=== PATIENT | female | born 1975 | race Caucasian/White ===

== ENCOUNTER 2017-08-20 15:47 | Emergency (ER) | payer MEDICAID, SELFPAY ==
[2017-08-20 15:49] VITALS: BP 143/116; PULSE 92; RESP 14; TEMP 36.6; O2SAT 99; BMI 27.3
--- NOTE | 2017-08-20 15:59 | CT_ITS ---
STUDY: CT ABDOMEN AND PELVIS WITHOUT CONTRAST REASON FOR EXAM: Female, 42 years old. Right flank pain for 3 days. History of tubal ligation. RADIATION DOSAGE (If Supplied By Facility): CTDIvol = ( 10.34 ) mGy, DLP = ( 470.9 ) mGycm TECHNIQUE: Transaxial images were obtained from the dome of the diaphragm to the symphysis pubis without oral contrast, and without intravenous contrast. Sagittal and coronal images were reconstructed. Individualized dose optimization techniques were used for this CT. COMPARISON: CT abdomen and pelvis September 21, 2015. FINDINGS: The visualized lung bases are unremarkable. The visualized portions of the heart are within normal limits. Normal liver. The portal vein diameter is grossly 13 mm. Normal gallbladder and extrahepatic biliary system. The diameter of the common bile duct is 4 mm. Normal spleen. There is an inferior parenchymal lobulation at the tail of the pancreas that is thought to be within normal limits. Normal bilateral adrenal glands. Normal right kidney. Normal left kidney. No nephrolithiasis or hydronephrosis. Normal visualized stomach. Normal small intestine. Normal colon. The appendix is visualized and appears normal. Normal abdominal aorta. Normal inferior vena cava. Normal retroperitoneum. Normal urinary bladder. Normal size retroverted uterus. Endometrial thickness is approximately 8 mm. There is a well-defined 3.95 x 2.9 x 4.5 cm left ovarian cyst. The right ovary is unremarkable There is a small umbilical hernia containing fat. There is suggestion of a very small right-sided inguinal hernia containing adipose tissue. Incidental note of an anomalous lumbosacral vertebra with attempted right-sided sacralization and pseudoarticulation to the upper right sacral ala. CT/Abdomen/Pelvis without Cont IMPRESSION: 1. 4.5 cm left ovarian cyst. The right ovary and retroverted uterus are unremarkable. 2. No nephrolithiasis or hydronephrosis. 3. The bowel is unremarkable without sign of obstruction. The appendix is normal. 4. Small, fat-containing umbilical hernia and suggestion of very small, fat-containing right inguinal hernia. 5. 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 Electronically Signed: Josh Alejandra MD at 17:10 EDT , Service support ,
--- NOTE | 2017-08-20 16:03 | ED.DCSUM_ITS ---
- ER Visit Summary Date of Service: 08/20/17 Chief Complaint: Right flank pain History of Present Illness: The patient is a 42 F presenting with right flank pain since Sunday. She denies nausea or vomiting. Denies diarrhea or constipation. She has urinary frequency. She denies dysuria or hematuria. She has not had these symptoms in the past. She denies injury. Denies history of kidney stones. She did not try any medications prior to arrival. Denies other complaints. Physical Examination: Vitals are stable. Patient is afebrile. Alert no acute distress. HEENT exam is unremarkable. Lungs are clear and equal bilaterally. Heart is regular rate and rhythm. Abdomen is soft nontender nondistended. No rebound or guarding. Back: Right CVA tenderness Extremities are unremarkable. Skin is warm and dry. Remainder of exam is unremarkable. Emergency Department Course and Treatment: Patient was given IV Toradol. CBC shows a hemoglobin of 10.8. She has a history of chronic anemia. Chemistries unremarkable. Urinalysis is normal. CT flank shows 4.5 cm left ovarian cyst, normal appendix, small fat-containing umbilical hernia. Patient is resting comfortably in the emergency department. She is given a prescription for Naprosyn. She is advised to follow-up with Dr. Murray her primary care physician. Advised return to ED for worsening complaints. Disposition: Discharge home Impression: Right flank pain This note was generated with [employer] dictation software. It may contain incorrect words, spelling, and punctuation that were not noted in review of the chart prior to signing ED Disposition - Plan for ED Patient: Chief Complaint: Flank Pain Referrals: Care Physician,No Primary [Family Provider] -
[2017-08-20] MEDS: 0.9% Normal Saline 1,000 ML 250 ML IV (16:31)
[2017-08-20] MEDS: Ketorolac 30 MG/ML Syringe IV (16:31)
[2017-08-20 16:36] LABS: Anion Gap 9 (5-15); BUN 9 mg/dL (7-18); BUN/Creat Ratio 11.4 RATIO (10-20); Calcium,Total 8.5 mg/dL (8.5-10.1); Chloride 109 mmol/L (98-107); Creatinine, Serum 0.79 mg/dL (0.55-1.02); EST Glomerular Filtration Rate 84 mL/min (>60); Est Glom Filt Rate - Afr Amer 102 mL/min (>60); Estimated Creatinine Clearance 78.47 ml/min; Glucose 94 mg/dL (74-106); Potassium 4.1 mmol/L (3.5-5.1); Sodium Level 141 mmol/L (136-145)
[2017-08-20 16:51] LABS: Bacteria 0 SEEN /hpf (None Seen)
[2017-08-20 16:52] LABS: Absolute Lymphocyte Count 1.82 X10^3/ul (0.83-4.51); Absolute Neutrophil Count 3.7 X10^3/uL (2.0-7.7); Basophil# 0.05 X10^3/uL; Basophil% 0.8 % (0-1); Eosinophil# 0.29 X10^3/uL; Eosinophils% 4.6 % (0-5); Hemoglobin 10.8 g/dl (12.0-15.0); Lymphocyte # 1.82 X10^3/ul (4.0); Mean Corp Hgb Conc 30.9 g/gl (32-36); Mean Corpuscular Hgb 22.5 pg (27.0-32.0); Mean Corpuscular Volume 72.9 fL (81-99); Mean Platelet Vol. 9.7 fl (6.2-12.0); Monocyte# 0.45 X10^3/uL; Monocyte% 7.2 % (0-10); Neutrophil # 3.67 X10^3/uL (2.7-7.7); Neutrophil % 58.4 % (47-70); POSITIVE COUNT NO; POSITIVE DIFFERENTIAL NO; POSITIVE MORPHOLOGY YES; Platelet Count 421 K/mm3 (150-450); RBC Distribution Width CV 14.7 % (11.6-14.6); White Blood Count 6.3 K/mm3 (4.4-11.0)
[2017-08-20 16:53] LABS: Differential Indicated SCAN CRITERIA MET
[2017-08-20 17:18] LABS: Color, Urine Yellow (Yellow); Glucose, Dipstick Normal (Normal); Ketone-Dipstick Negative (Negative); Leukocyte Esterase-Dipstick Negative /ul (Negative); Nitrite-Dipstick Negative (Negative); Occult Blood-Urine 10 /ul (Negative); Protein-Dipstick Negative (Negative); Specific Gravity, Urine 1.025 (1.002-1.030); Urine Bilirubin Dipstick Negative (Negative); Urine Clarity Clear (Clear); Urine Urobilinogen Normal (Normal)
[2017-08-20 17:23] LABS: Red Blood Cells-Urine 0-5 SEEN /hpf (0-5); Squamous Epithelial Cells - UA 0-5 SEEN /hpf (5-10); White Blood Cells 0-5 SEEN /hpf (0-5)
[2017-08-20 17:24] LABS: Mucous, Urine 2+ /hpf (<or=2+)
--- NOTE | 2017-08-20 17:34 | ED.DEP ---
ED Disposition - Plan for ED Patient: Chief Complaint: Flank Pain Instructions: ED Flank Pain Uncertain Cause Prescriptions: Naproxen [Naprosyn] 500 mg PO BID PRN #20 tablet Referrals: Care Physician,No Primary [Family Provider] - Polo Murray MD [Primary Care Provider] -
[2017-08-20 17:45] LABS: Anisocytosis 1+; Crenated RBC RARE; Hypochromasia 1+; Microcytosis 3+
[2017-08-20 18:09] VITALS: BP 113/83; PULSE 80; RESP 16; O2SAT 100
== END 2017-08-20 18:00 | disposition home or self-care (01) ==
PROVIDERS: Emergency Provider Emergency Medicine; PCP Family Medicine
DX: R10.9 Unspecified abdominal pain (principal); R35.0 Frequency of micturition; N83.202 Unspecified ovarian cyst, left side; K42.9 Umbilical hernia without obstruction or gangrene; D64.9 Anemia, unspecified; Z79.899 Other long term (current) drug therapy
CPT/HCPCS: 74176; 80048; 81001; 85025; 96361; 96374; 99284; J7030; A4216

== ENCOUNTER 2018-06-17 19:38 | Emergency (ER) | payer MEDICAID, SELFPAY ==
[2018-06-17 19:39] VITALS: BP 127/80; PULSE 80; RESP 17; TEMP 36.8; O2SAT 100; BMI 26.4
--- NOTE | 2018-06-17 19:45 | RAD_ITS ---
STUDY: X-RAY - RIGHT KNEE REASON FOR EXAM: Female, 43 years old. Fall. TECHNIQUE: 4 view(s) of the knee. COMPARISON: None. FINDINGS: Normal visualized distal femur. Normal visualized proximal tibia and fibula. Normal proximal tibiofibular articulation. There is no demonstrated fracture. Normal medial femorotibial compartment. Normal lateral femorotibial compartment. Normal patellofemoral articulation. There is no demonstrated joint effusion. The soft tissue structures are unremarkable. RAD/Knee 4 or More Views IMPRESSION: Normal x-ray examination of the knee. Electronically Signed: Bobby Meredith MD at 19:58 EST , Service support ,
--- NOTE | 2018-06-17 21:00 | ED.DCSUM_ITS ---
- ER Visit Summary Date of Service: 06/17/18 Chief Complaint: Right knee injury History of Present Illness: The patient is a 43 F twisting injury right knee last evening at 1030 slipping on black ice. No falls or head injuries. No paresthesias. Able to ambulate however pain worse with weightbearing. No history of gastric ulcers or kidney injury. No medications taken for symptoms. No previous similar injuries in the past. Physical Examination: General: Alert and oriented ?3, no acute distress HEENT: Normocephalic, atraumatic. Moist mucosa membranes Neck: supple, nontender. Cardiovascular: Regular rate and rhythm, no murmurs Respiratory: Normal breath sounds, symmetric, no distress Abdomen: Soft, nontender, nondistended Extremities: Right lower extremity: Negative logroll knee extensor mechanism intact. Negative varus and valgus. Positive Riley's. No deformities. Distal pulses intact. Neuro: no focal neurological deficits. Test Results: Right knee x-ray: No acute process Emergency Department Course and Treatment: X-ray obtained no acute process. Declined crutches. Sudhakar wrap Motrin started. Exam concerns possible meniscus injury. Is given follow-up with orthopedist. Treatment Plan: [] Disposition: Discharge Impression: Internal derangement right knee This note was generated with [employer] dictation software. It may contain incorrect words, spelling, and punctuation that were not noted in review of the chart prior to signing ED Disposition - Plan for ED Patient: Disposition: Home or Assisted Living Diagnosis: Internal derangement of right knee Instructions: ED Meniscal Injury Knee Poss Prescriptions: Ibuprofen 600 mg PO 4X/DAY PRN #20 tablet PRN Reason: Pain Referrals: Polo Murray MD [Primary Care Provider] - Jaime Mckinnon DO [STAFF PHYSICIAN] - 5-7 Days
[2018-06-17] MEDS: Ibuprofen 600 MG Tablet PO (21:20)
[2018-06-17 21:21] VITALS: PULSE 80; RESP 16
== END 2018-06-17 21:22 | disposition home or self-care (01) ==
PROVIDERS: Emergency Provider Emergency Medicine; Family Provider Family Medicine; PCP Family Medicine
DX: M23.91 Unspecified internal derangement of right knee (principal); W00.0XXA Fall on same level due to ice and snow, initial encounter; X50.1XXA Overexertion from prolonged static or awkward postures, initial encounter; Y93.9 Activity, unspecified; Y92.9 Unspecified place or not applicable; Y99.9 Unspecified external cause status
CPT/HCPCS: 73564; 99283

== ENCOUNTER 2020-09-26 11:45 | Observation (INO) | payer MEDICAID, SELFPAY ==
[2020-09-26] VITALS (13 sets, daily range): BP systolic 108–128; BP diastolic 66–81; PULSE 69–97; RESP 16–28; TEMP 35.3–36.9; O2SAT 99–100; BMI 21.8; BMI 21.4
--- NOTE | 2020-09-26 12:08 | EDS_ITS ---
HPI History of Present Illness Chief Complaint: Abn Labs Detail of Chief Complaint: Sent in for a low hemoglobin done in outside lab of reportedly 4.8. Informant: patient and spouse/S.O. Onset/Context/Timing Onset: Weeks Context: Gradual Onset Timing: Continuous Current Severity: Mild Narrative Narrative: 45-year-old female history of iron deficiency anemia on iron. States 2 months ago had a heavier and longer than normal menstrual cycle. Heavier bleeding. Since that time she is had exertional shortness of breath, fatigue and just generalized weakness. She had blood work done at the [facility] yesterday and they called her and said that her hemoglobin was 4.8 and she did need to go to the emergency department. She denies any bloody noses, bruising, melena or hematuria. She is never needed a transfusion in the past. Prior similar symptoms: No Recent Illness/Hospitalization: No PFSH PFSH Home Medications iron aspgl,ps complex-vit C-sa [Niferex-150] 150 mg PO DAILYCM 05/18/16 [History Last Taken Unknown] montelukast 10 mg PO DAILY 05/18/16 [History Last Taken Unknown] albuterol sulfate [Ventolin Hfa (SP)] 1 - 2 puff INHALATION Q4H PRN PRN 08/20/17 [History Last Taken Unknown] Allergy/AdvReac Type Severity Reaction Status Date / Time Penicillins Allergy Rash Verified 09/26/20 11:50 Social History Smoking Status: Never smoker ROS ROS ED ROS Narrative Middle-aged female with recent fatigue and exertional dyspnea. She denies any nausea, vomiting, diarrhea or fever. She denies any dysuria or hematuria. She denies any melena. No abdominal pain. Constitutional Constitutional ED: Denies chills or fever(s) Eyes Eyes: Denies change in vision ENT ENT ED: Denies ear pain or sore throat Cardiovascular Cardiovascular: Denies chest pain Respiratory/Chest Respiratory/Chest: Reports dyspnea and dyspnea on exertion; Denies cough or sputum Gastrointestinal Gastrointestinal: Denies abdominal pain, diarrhea, melena, nausea or vomiting Genitourinary Genitourinary ED: Denies dysuria or hematuria Musculoskeletal Musculoskeletal: Denies arthralgias or myalgias Integumentary Denies abscess or rash Neurologic Neurologic: Denies headache(s) Psychiatric Psychiatric: Denies depression Endocrine Endocrinology: Denies polyuria Allergic/Immunologic Allergic/Immunologic ED: Denies urticaria EXAM Physical Exam Narrative Exam Narrative: Well-appearing middle-aged female no acute distress. Vital signs stable afebrile. She does appear a little pale. HEENT exam otherwise unremarkable. Lungs are clear to auscultation bilaterally. Heart regular rhythm rate about 95 no murmur. Abdomen soft nontender. Otherwise exam unremarkable. No petechiae or purpura. Neurologically she is awake and alert. Const Vital Signs: 09/26/20 11:47 09/26/20 12:27 Temperature 95.5 F L Temperature Source Temporal Pulse Rate 97 Respiratory Rate 16 Respiratory Effort Normal Non-Labored Respiratory Pattern Normal Blood Pressure 113/66 Blood Pressure Mean 81 Pulse Ox 100 Oxygen Delivery Method Room Air Positive well nourished and well developed General Appearance ED: well developed HEENT Reports moist mucous membranes Negative for trauma or tenderness Eyes PERRL and EOMs intact bilaterally Neck no lymphadenopathy and supple Chest Wall inspection of chest normal Resp normal respiratory effort Auscultation: diminished lung sounds Cardio regular rate, regular rhythm and no murmurs GI normal to inspection, nondistended, normoactive bowel sounds, non-tender and non-distended Palpation: soft Back/Spine no CVA tenderness Extremity normal to inspection General Extremety ED: Negative for edema or tenderness General Extremity: Negative for edema Neuro oriented x3 and CN's II-XII intact bilaterally Sensorium / Orientation: alert Motor Exam: strength 5/5 throughout Psych mental status grossly normal Skin no rashes or lesions noted MDM MDM MDM Narrative Medical decision making narrative: Middle-aged female history of iron deficiency anemia. Reportedly has a hemoglobin of 4.8 on outpatient labs. She will be typed and crossed for 4 units. If her hemoglobin is truly that low she will be given 2 units and discussed with the hospitalist. Lab Data Attestation: I reviewed the patient's lab results. Lab results narrative: CBC is consistent with the labs that were drawn at another facility. Her hemoglobin is 4.6. MCV is 59. Consistent with a microcytic anemia. Patient is doing well on repeat exam at 12:58 PM. We are waiting for the type and cross blood should be transfused 2 units. Due to how low her hemoglobin is I will speak the hospitalist about admission depending if they want to give her 2 to 4 units and the length of time that will take. Discussed the plan with the patient and her and they are comfortable with that. Labs: Laboratory Results - last 24 hr 09/26/20 09/26/20 12:44 12:44 WBC 3.9 L RBC 3.51 L Hgb 4.6 L* Hct 20.8 L MCV 59.3 L MCH 13.1 L MCHC 22.1 L RDW Std Deviation 42.0 RDW Coeff of Jaclyn 20.5 H Plt Count 460 H MPV 9.5 Crossmatch See Detail Discharge Plan Triage Chief Complaint: Abn Labs ED Provider: Robert Godinez Dx/Rx/DC Orders Clinical Impression: Microcytic anemia, Blood transfusion during current hospitalisation Prescriptions: No Action montelukast 10 MG tablet 10 mg PO DAILY RF: 0 Ferrex 150 Plus 150 MG capsule 150 mg PO DAILYCM RF: 0 albuterol sulfate [Ventolin HFA] 1 INHALER inhaler 1 - 2 puff inhalation Q4H PRN PRN (Reason: Asthma) RF: 0 Primary Care Provider: Victor Manuel Du NP Referrals: Victor Manuel Du NP, SECURITY INSTALLATION TECHNICIAN-C [Primary Care Provider] -
[2020-09-26 12:52] LABS: Hematocrit 20.8 % (37-47); Mean Corp Hgb Conc 22.1 g/dL (32-36); Mean Corpuscular Hgb 13.1 pg (27.0-32.0); Mean Corpuscular Volume 59.3 fL (81-99); Mean Platelet Vol. 9.5 fl (6.2-12.0); POSITIVE COUNT YES; POSITIVE MORPHOLOGY YES; Platelet Count 460 K/mm3 (150-450); RBC Distribution Width CV 20.5 % (11.6-14.6); Red Blood Count 3.51 M/mm3 (4.2-5.4); White Blood Count 3.9 K/mm3 (4.4-11.0)
[2020-09-26 12:53] LABS: Hemoglobin 4.6 g/dL (12.0-15.0); Scan Indicated on CBC? Y/N YES- FLAGS NOTED
[2020-09-26 13:08] LABS: Differential Comment SCANNED
--- NOTE | 2020-09-26 13:13 | NURSING ---
DR DOM HOLLINGSWORTH
[2020-09-26 13:20] LABS: Anion Gap 8 (5-15); BUN 9 mg/dL (7-18); BUN/Creat Ratio 14.1 RATIO (10-20); Calcium,Total 8.5 mg/dL (8.5-10.1); Chloride 109 mmol/L (98-107); Creatinine, Serum 0.64 mg/dL (0.55-1.02); EST Glomerular Filtration Rate 106 mL/min (>60); Est Glom Filt Rate - Afr Amer 128 mL/min (>60); Estimated Creatinine Clearance 97.78 ml/min; Glucose 93 mg/dL (74-106); Sodium Level 139 mmol/L (136-145)
--- NOTE | 2020-09-26 13:43 | NURSING ---
109 OBS TERELETSKY ANEMIA
--- NOTE | 2020-09-26 15:32 | HP.PCM.HOS_ITS ---
Documented by User: Joel CRUMP 09/26/20 15:45 HPI - General General Date of Admission: 09/26/20 HPI Narrative Patient is a 45-year-old female who presents to the ED at [facility] with a chief complaint of abnormal labs. Yesterday, patient had labs completed at [facility] on request from her primary care provider, she subsequently found that her hemoglobin was 4.8 and was told to go to the emergency department immediately. Of note she is been suffering from exertional shortness of breath when walking uphill. Review of systems is also significant for fatigue and generalized weakness. Patient denies bloody noses, easy bruis ing, melena, hematuria, chest pain, palpitations, fever, chills, N/V/D. Vital signs stable and patient afebrile. Work-up in the ED was significant for a hemoglobin of 4.6, baseline 11.5. White blood cells are 60. BMP unremarkable. [facility] Medical History (Updated 09/26/20 @ 14:06 by Natalia Francisco) Anemia Asthma Migraines Home Medications iron aspgl,ps complex-vit C-sa [Niferex-150] 150 mg PO DAILYCM 05/18/16 [History Last Taken Unknown] montelukast 10 mg PO DAILY 05/18/16 [History Last Taken Unknown] albuterol sulfate [Ventolin Hfa (SP)] 1 - 2 puff INHALATION Q4H PRN PRN 08/20/17 [History Last Taken Unknown] ascorbic acid (vitamin C) 250 mg PO DAILY 09/26/20 [History Last Taken Unknown] cyanocobalamin (vitamin B-12) [Vitamin B-12] 1,000 mcg PO DAILY 09/26/20 [History Last Taken Unknown] Allergy/AdvReac Type Severity Reaction Status Date / Time Penicillins Allergy Rash Verified 09/26/20 11:50 Social History Smoking Status: Never smoker ROS Review of Systems ROS Unobtainable: Denies due to encephalopathy, due to endotracheal tube, due to mental condition, due to mental status or other Constitutional Constitutional: Reports fever(s), malaise and weakness Eyes Eyes: Denies blurry vision, change in eye color, change in vision, discharge from eye(s), double vision, erythema, eye pain, loss of vision or other ENT HEENT: Denies abnormal hearing, dysphagia, ear pain, epistaxis, headache(s), hearing loss, nasal congestion, nasal discharge, post nasal drip, sinus pressure, sore throat or other Cardiovascular Cardiovascular: Reports dyspnea on exertion and edema; Denies chest pain, claudication, lightheadedness, orthopnea, palpitations, paroxysmal nocturnal dyspnea, rapid heart rate, syncope or other Respiratory/Chest Respiratory/Chest: Reports shortness of breath with exertion Gastrointestinal Gastrointestinal: Denies abdominal pain, coffee ground emesis, constipation, diarrhea, dyspepsia, hematemesis, hematochezia, loose stools, melena, nausea, v omiting or other Genitourinary Genitourinary: Denies burning urination, difficulty urinating, dysuria, hematuria, nocturia, urinary frequency, urinary hesitancy, urinary incontinence, urinary urgency or other Musculoskeletal Musculoskeletal: Denies arthralgias, back pain, joint pain, joint stiffness, joint swelling, myalgias, neck pain or other Neurologic Neurologic: Denies abnormal gait, abnormal speech, confusion, disequilibrium, dizziness, focal weakness, headache(s), numbness, paresthesias, seizure-like activity, seizures, syncope, tingling, tremor(s) or other Psychiatric Psychiatric: Denies anxiety, depression, homicidal ideation, suicidal ideation or other Endocrine Endocrinology: Denies change in body appearance, cold intolerance, excessive sweating, heat intolerance, polydipsia, polyuria or other Hematologic/Lymphatic Hematologic/Lymphatic: Denies anemia, easy bleeding, easy bruising, lymphadenopathy or other Allergic/Immunologic Allergic/Immunologic: Denies rhinitis, hives, eczemia, asthma or other Vital Signs Vital Signs Vital Signs: 09/26/20 11:47 09/26/20 12:27 09/26/20 13:50 Temperature 95.5 F L 98.3 F Temperature Source Temporal Temporal Pulse Rate 97 87 Respiratory Rate 16 28 H Respiratory Effort Normal Non-Labored Respiratory Pattern Normal Blood Pressure 113/66 121/72 H Blood Pressure Mean 81 88 Blood Pressure Source Blood Pressure Position Blood Pressure Location Pulse Ox 100 100 Oxygen Delivery Method Room Air Room Air Oxygen Flow Rate (L/min) 09/26/20 14:02 Temperature 98.3 F Temperature Source Oral Pulse Rate 79 Respiratory Rate 18 Respiratory Effort Respiratory Pattern Blood Pressure 128/74 H Blood Pressure Mean 92 Blood Pressure Source Monitor Blood Pressure Position Semi-Fowlers Blood Pressure Location Left Arm Pulse Ox 100 Oxygen Delivery Method Nasal Cannula Oxygen Flow Rate (L/min) 2 Physical Exam Const alert, oriented x3 and no apparent distress General Appearance: cooperative HEENT normocephalic, head/scalp atraumatic and hearing grossly normal bilaterally Eyes PERRL, EOMs intact bilaterally and conjunctivae normal Neck no lymphadenopathy, supple and no JVD Resp normal respiratory effort, no retractions, no use of accessory muscles and clear to auscultation bilaterally Cardio regular rate, regular rhythm, no murmurs and no JVD GI normal to inspection, nondistended, normoactive bowel sounds, soft to palpation, non-tender and non-distended Extremity normal to inspection, full ROM and no clubbing, cyanosis or edema Skin no rashes or lesions noted, no wounds, skin turgor normal and no jaundice Neuro CN's II-XII intact bilaterally Psych affect normal Lab / Micro Data Result Diagrams: 09/26/20 12:44 09/26/20 12:44 Labs: Laboratory Results - last 24 hr 09/26/20 09/26/20 09/26/20 12:44 12:44 12:44 WBC 3.9 L RBC 3.51 L Hgb 4.6 L* Hct 20.8 L MCV 59.3 L MCH 13.1 L MCHC 22.1 L RDW Std Deviation 42.0 RDW Coeff of Jaclyn 20.5 H Plt Count 460 H MPV 9.5 Differential Comment SCANNED Diff Path Review May foll Sodium 139 Potassium 4.0 Chloride 109 H Carbon Dioxide 22.0 Anion Gap 8 BUN 9 Creatinine 0.64 Estim Creat Clear Calc 97.78 Est GFR (MDRD) Af Amer 128 Est GFR (MDRD) Non-Af 106 BUN/Creatinine Ratio 14.1 Glucose 93 Calcium 8.5 Blood Type Cancelled Antibody Screen Cancelled Crossmatch See Detail 09/26/20 15:15 WBC RBC Hgb Hct MCV MCH MCHC RDW Std Deviation RDW Coeff of Jaclyn Plt Count MPV Differential Comment Diff Path Review Sodium Potassium Chloride Carbon Dioxide Anion Gap BUN Creatinine Estim Creat Clear Calc Est GFR (MDRD) Af Amer Est GFR (MDRD) Non-Af BUN/Creatinine Ratio Glucose Calcium Blood Type Antibody Screen Crossmatch See Detail Assessment & Plan Assessment/Plan (1) Microcytic anemia: (2) Blood transfusion during current hospitalisation: PLAN: Patient is a 45-year-old female who presents to the ED at [facility] with a chief complaint of abnormal labs. Yesterday, patient had labs completed at [facility] on request from her primary care provider, she subsequently found that her hemoglobin was 4.8 and was told to go to the emergency department immediately. Of note she is been suffering from exertional shortness of breath when walking uphill. Review of systems is also significant for fatigue and generalized weakness. Vital signs stable and patient afebrile. Work-up in the ED was significant for a hemoglobin of 4.6, baseline 11.5. White blood cells are 60. BMP unremarkable. Patient will be placed on medical surgical floor 3 for observation status during transfusion. 1) Microcytic anemia Presentation and history as above. 4 units PRBCs ordered. Plan; patient received 2 units of PRBCs, trend CBC in a.m. DVT Prophylaxis - low risk, not indicated. CODE STATUS: Full code Patient seen by Joel Borjas PA-C, under the supervision of Dr. Stanley Documented by User: Dr. Omar Stanley, 09/26/20 16:21 HPI - General General Date of Admission: 09/26/20 [facility] Medical History (Updated 09/26/20 @ 14:06 by Natalia Francisco) Anemia Asthma Migraines Home Medications iron aspgl,ps complex-vit C-sa [Niferex-150] 150 mg PO DAILYCM 05/18/16 [History Last Taken Unknown] montelukast 10 mg PO DAILY 05/18/16 [History Last Taken Unknown] albuterol sulfate [Ventolin Hfa (SP)] 1 - 2 puff INHALATION Q4H PRN PRN 08/20/17 [History Last Taken Unknown] ascorbic acid (vitamin C) 250 mg PO DAILY 09/26/20 [History Last Taken Unknown] cyanocobalamin (vitamin B-12) [Vitamin B-12] 1,000 mcg PO DAILY 09/26/20 [History Last Taken Unknown] Allergy/AdvReac Type Severity Reaction Status Date / Time Penicillins Allergy Rash Verified 09/26/20 11:50 Social History Smoking Status: Never smoker Lab / Micro Data Result Diagrams: 09/26/20 12:44 09/26/20 12:44 Addendum Addendum: Patient was seen and examined today independently of Joel Borjas, she had outpatient labs done yesterday at a physician's office, these labs were abnormal and showed a low hemoglobin and she was instructed to go to the ER for evaluation. Patient gives a history of iron deficiency anemia for several years she states that to her knowledge she has never undergone a thorough work- up to find out why she is anemic. She had not been following up with her doctor on a timely basis-she states that she had not seen her family doctor in over a y ear. She was taking oral iron at one time, she was placed back on this when she saw her doctor yesterday. Patient also has a history of asthma and she intermittently uses an albuterol inhaler. Patient states that for the last month she has been having problems with shortness of breath and increased heart rate especially when she does anything exertional such as walk up a hill. She denies any blood in her stool, blood in her urine, or black tarry stools. She denies any abdominal pain. On examination she appeared pale, she appears her stated age,, she does not appear to be in any distress. Vital signs as documented. Skin warm and dry and without overt rashes. Neck without JVD, thyroid appears normal, trachea is midline, neck is supple. Lungs clear, normal air movement was noted. Heart exam notable for regular rhythm, normal sounds and absence of murmurs, rubs or gallops. Abdomen unremarkable and without evidence of organomegaly, masses, or abdominal aortic enlargement, bowel sounds are present in all 4 quadrants, no abdominal tenderness was noted. Extremities nonedematous, no cyanosis was noted, no clubbing was noted. Neuro: Cranial nerves II through XII are grossly intact, no focal motor deficits were noted, sensation to light touch and pinprick is intact, motor exam 5/5 throughout. Psych: Patient is alert and oriented x3, she does not appear anxious or depressed, she does not appear agitated. Patient will receive 3 units of packed red blood cells and I will infuse Ve nofer, I will obtain iron studies and a B12 level as well as a ferritin prior to the transfusion. I have reviewed Joel Borjas's history and physical including his medical assessment and plan of care and endorse it. With the above additions. Visit Charges OBSV E&M: [id number] Initial observation care L3
[2020-09-26 16:54] LABS: Ferritin 2 ng/mL (8-252); Iron 61 ug/dL (50-170); Iron Binding Capacity,Total 541 ug/dL (250-450)
[2020-09-27 04:44] VITALS: BP 110/71; PULSE 67; RESP 16; TEMP 36.6; O2SAT 100
[2020-09-27 04:48] LABS: Absolute Lymphocyte Count 1.82 X10^3/uL (0.83-4.51); Absolute Neutrophil Count 1.9 X10^3/uL (2.0-7.7); Basophil# 0.07 X10^3/uL; Basophil% 1.6 % (0-1); Eosinophil# 0.24 X10^3/uL; Eosinophils% 5.4 % (0-5); Hematocrit 28.7 % (37-47); Hemoglobin 7.7 g/dL (12.0-15.0); Lymphocyte # 1.82 X10^3/ul (0.83-4.51); Lymphocyte % 41.1 % (19-41); Mean Corp Hgb Conc 26.8 g/dL (32-36); Mean Corpuscular Hgb 17.9 pg (27.0-32.0); Mean Corpuscular Volume 66.6 fL (81-99); Mean Platelet Vol. 9.5 fl (6.2-12.0); Monocyte# 0.41 X10^3/uL; Monocyte% 9.3 % (0-10); NRBC Flagged by Analyzer 0.5 % (0-5); Neutrophil # 1.87 X10^3/uL (2.7-7.7); Neutrophil % 42.1 % (47-70); POSITIVE MORPHOLOGY YES; Platelet Count 442 K/mm3 (150-450); RBC Distribution Width CV 26.8 % (11.6-14.6); RBC Distribution Width SD 61.8 fl (35.1-43.9); Red Blood Count 4.31 M/mm3 (4.2-5.4); White Blood Count 4.4 K/mm3 (4.4-11.0)
[2020-09-27 05:08] LABS: Vitamin B12 357 pg/mL (211-911)
[2020-09-27 05:17] LABS: Differential Indicated SCAN CRITERIA MET
[2020-09-27 06:07] LABS: Anisocytosis 3+; Differential Comment SCANNED; Hypochromasia 2+; Macrocytosis RARE; Microcytosis 3+
[2020-09-27 06:08] LABS: Ovalocyte RARE; Polychromasia RARE
[2020-09-27 07:50] VITALS: BP 110/68; PULSE 66; RESP 18; TEMP 36.5; O2SAT 98
--- NOTE | 2020-09-27 09:47 | DCINST_ITS ---
Discharge Instructions Diet Discharge Diet: No restrictions Activity Discharge Activity: Return to Normal Activity Follow Up Care Please Follow Up With: Primary care provider When: Within the next 1 to 2 weeks. Test Results: Test results from this visit will be discussed in further detail at your follow-up appointment, if applicable. Discharge Plan Admission Admit Date/Time: 09/26/20 13:40 Primary Reason for Your Visit: Anemia Attending Provider: Omar Stanley Primary Care Provider: Victor Manuel Du NP Instructions Patient Instructions: Anemia Additional Instructions / Restrictions: You will need endoscopy and possible ultrasound of your uterus. Discharge Orders/Prescriptions Prescriptions: Continued montelukast 10 MG tablet 10 mg PO DAILY RF: 0 Ferrex 150 Plus 150 MG capsule 150 mg PO DAILYCM RF: 0 albuterol sulfate [Ventolin HFA] 1 INHALER inhaler 1 - 2 puff inhalation Q4H PRN PRN (Reason: Asthma) RF: 0 cyanocobalamin (vitamin B-12) [Vitamin B-12] 1,000 mcg tablet 1,000 mcg PO DAILY RF: 0 ascorbic acid (vitamin C) 250 mg tablet 250 mg PO DAILY RF: 0 Referrals / Follow Up: Victor Manuel Du NP, [employer] TEAM TECHNICIAN-C [Primary Care Provider] - Jada Perez MD [STAFF PHYSICIAN] - Disposition Disposition (needs filled in before D/C Order can be placed): Home, self care
[2020-09-27 10:05] VITALS: BP 112/73; RESP 18; TEMP 36.9
[2020-09-27 10:20] VITALS: BP 108/66; RESP 20; TEMP 36.5
[2020-09-27] MEDS: 0.9% Saline Lock 10 ML Syringe IV ×3 (10:23→14:31)
[2020-09-27 10:59] VITALS: BP 108/66; PULSE 73; RESP 18; TEMP 36.9; O2SAT 98
[2020-09-27 11:20] VITALS: BP 112/67; PULSE 67; RESP 18; TEMP 37.4; O2SAT 98
[2020-09-27 12:40] LABS: Hematocrit 34.2 % (37-47); Hemoglobin 9.4 g/dL (12.0-15.0)
[2020-09-27 13:42] LABS: Pathologist Review Reviewed
--- NOTE | 2020-09-27 14:22 | PHA.DC.MR ---
Pharmacy Service has performed discharge medication reconciliation for this patient. The patient's discharge medication list was reviewed for discrepancies and discrepancies were resolved. Home Medications Ferrex 150 Plus 150 mg PO DAILYCM 05/18/16 montelukast 10 mg PO DAILY 05/18/16 albuterol sulfate [Ventolin HFA] 1 - 2 puff INHALATION Q4H PRN PRN 08/20/17 ascorbic acid (vitamin C) 250 mg PO DAILY 09/26/20 cyanocobalamin (vitamin B-12) [Vitamin B-12] 1,000 mcg PO DAILY 09/26/20
--- NOTE | 2020-09-27 15:03 | PCM.DC.SUM ---
Documented by User: Joel CRUMP 09/27/20 15:17 Providers Date of Admission: 09/26/20 Primary Care Physician: LISA Miller Reason For Visit: ANEMIA Diagnosis Discharge Diagnosis (1) Microcytic anemia: Status: Acute Code(s): D50.9 - Iron deficiency anemia, unspecified (2) Blood transfusion during current hospitalisation: Status: Acute Medications at Discharge Home Medications Ferrex 150 Plus 150 mg PO DAILYCM 05/18/16 montelukast 10 mg PO DAILY 05/18/16 albuterol sulfate [Ventolin HFA] 1 - 2 puff INHALATION Q4H PRN PRN 08/20/17 ascorbic acid (vitamin C) 250 mg PO DAILY 09/26/20 cyanocobalamin (vitamin B-12) [Vitamin B-12] 1,000 mcg PO DAILY 09/26/20 Hospital Course Summary of Care Provided Minutes Spent on Discharge: 35 Hospital Course: Patient is a 45-year-old female who was admitted for oberservation at [facility] for microcytic anemia. Hemoglobin on admission was 4.6. Patient was infused 4 units of packed red blood cells and hemoglobin was 9.4 as of 1230 on 09/27. Patient's iron was WNL at 61, TIBC was elevated at 541 and ferritin was low at 2. Believe these labs are the results of patient taking iron at home. It is unclear the source of the patient's anemia and is recommended that she follow-up with her primary care provider for a referral for endoscopy and possible ultrasound of the uterus. 1) Microcytic anemia 4 units of packed red blood cells infused, hemoglobin as above. Plan; follow-up with primary care provider for outpatient anemia work-up. Patient seen by Joel Borjas PA-C, under the supervision of Dr. Stanley Physical Exam Narrative Patient is a 45-year-old female comfortably resting in bed, alert and oriented x3. Patient reports no progression of symptoms from yesterday and reports feeling well. Denies chest pain, shortness of breath, palpitations, sputum production, fever, chills, N/V/D. Const alert, oriented x3, no apparent distress, average body habitus and no limitations HEENT normocephalic, head/scalp atraumatic and hearing grossly normal bilaterally Eyes PERRL, EOMs intact bilaterally and conjunctivae normal Neck no lymphadenopathy, supple and no JVD Resp normal respiratory effort, no retractions, no use of accessory muscles and clear to auscultation bilaterally Cardio regular rate, regular rhythm, no murmurs and no JVD GI normal to inspection, nondistended, normoactive bowel sounds, soft to palpation, non-tender and non-distended Extremity normal to inspection, full ROM and no clubbing, cyanosis or edema Skin no rashes or lesions noted and no wounds Neuro CN's II-XII intact bilaterally Psych affect normal ABG / Lab / Microbiology Data Result Diagrams: 09/27/20 12:30 09/26/20 12:44 Laboratory: Laboratory Results - last 24 hr 09/26/20 09/26/20 09/26/20 12:44 12:44 15:15 WBC RBC Hgb Hct MCV MCH MCHC RDW Std Deviation RDW Coeff of Jaclyn Plt Count MPV Immature Gran % (Auto) Neut % (Auto) Lymph % (Auto) [place] % (Auto) Eos % (Auto) Baso % (Auto) Absolute Neuts (auto) Absolute Lymphs (auto) Nucleated RBC % Differential Comment Diff Path Review Reviewed Polychromasia Hypochromasia Anisocytosis Microcytosis Macrocytosis Ovalocytes Iron 61 TIBC 541 H Ferritin 2 L Vitamin B12 Blood Type A POSITIVE Antibody Screen NEGATIVE Crossmatch See Detail 09/27/20 09/27/20 09/27/20 04:36 04:36 12:30 WBC 4.4 RBC 4.31 Hgb 7.7 L 9.4 L Hct 28.7 L 34.2 L MCV 66.6 L D MCH 17.9 L MCHC 26.8 L D RDW Std Deviation 61.8 H RDW Coeff of Jaclyn 26.8 H Plt Count 442 MPV 9.5 Immature Gran % (Auto) 0.500 Neut % (Auto) 42.1 L Lymph % (Auto) 41.1 H Wheeler % (Auto) 9.3 Eos % (Auto) 5.4 H Baso % (Auto) 1.6 H Absolute Neuts (auto) 1.9 L Absolute Lymphs (auto) 1.82 Nucleated RBC % 0.5 Differential Comment SCANNED Diff Path Review Polychromasia RARE Hypochromasia 2+ Anisocytosis 3+ Microcytosis 3+ Macrocytosis RARE Ovalocytes RARE Iron TIBC Ferritin Vitamin B12 357 Blood Type Antibody Screen Crossmatch D/C Instructions Discharge Diet: No restrictions Discharge Activity: Return to Normal Activity Please Follow Up With: Primary care provider When: Within the next 1 to 2 weeks. Meaningful Use Info Meaningful Use Diagnoses (Choose all that apply): None applicable Discharge Plan Admission Admit Date/Time: 09/26/20 13:40 Primary Reason for Your Visit: Anemia Attending Provider: Omar Stanley Primary Care Provider: Victor Manuel Du NP Instructions Patient Instructions: Anemia Additional Instructions / Restrictions: You will need endoscopy and possible ultrasound of your uterus. Discharge Orders/Prescriptions Prescriptions: Continued montelukast 10 MG tablet 10 mg PO DAILY RF: 0 Ferrex 150 Plus 150 MG capsule 150 mg PO DAILYCM RF: 0 albuterol sulfate [Ventolin HFA] 1 INHALER inhaler 1 - 2 puff inhalation Q4H PRN PRN (Reason: Asthma) RF: 0 cyanocobalamin (vitamin B-12) [Vitamin B-12] 1,000 mcg tablet 1,000 mcg PO DAILY RF: 0 ascorbic acid (vitamin C) 250 mg tablet 250 mg PO DAILY RF: 0 Referrals / Follow Up: Jada Perez MD [STAFF PHYSICIAN] - Victor Manuel Du NP, YUE-C [Primary Care Provider] - Disposition Disposition (needs filled in before D/C Order can be placed): Home, self care Documented by User: Dr. Omar Stanley DO 09/27/20 16:55 Providers Date of Admission: 09/26/20 Reason For Visit: ANEMIA Medications at Discharge Home Medications Ferrex 150 Plus 150 mg PO DAILYCM 05/18/16 montelukast 10 mg PO DAILY 05/18/16 albuterol sulfate [Ventolin HFA] 1 - 2 puff INHALATION Q4H PRN PRN 08/20/17 ascorbic acid (vitamin C) 250 mg PO DAILY 09/26/20 cyanocobalamin (vitamin B-12) [Vitamin B-12] 1,000 mcg PO DAILY 09/26/20 ABG / Lab / Microbiology Data Result Diagrams: 09/27/20 12:30 09/26/20 12:44 Discharge Plan Admission Admit Date/Time: 09/26/20 13:40 Primary Reason for Your Visit: Anemia Attending Provider: Omar Stanley Primary Care Provider: Victor Manuel Du NP Instructions Patient Instructions: Anemia Additional Instructions / Restrictions: You will need endoscopy and possible ultrasound of your uterus. Discharge Orders/Prescriptions Prescriptions: Continued montelukast 10 MG tablet 10 mg PO DAILY RF: 0 Ferrex 150 Plus 150 MG capsule 150 mg PO DAILYCM RF: 0 albuterol sulfate [Ventolin HFA] 1 INHALER inhaler 1 - 2 puff inhalation Q4H PRN PRN (Reason: Asthma) RF: 0 cyanocobalamin (vitamin B-12) [Vitamin B-12] 1,000 mcg tablet 1,000 mcg PO DAILY RF: 0 ascorbic acid (vitamin C) 250 mg tablet 250 mg PO DAILY RF: 0 Referrals / Follow Up: Jada Perez MD [STAFF PHYSICIAN] - Victor Manuel Du NP, YUE-C [Primary Care Provider] - Disposition Disposition (needs filled in before D/C Order can be placed): Home, self care Addendum Addendum: Patient was seen and examined today independently of Joel Borjas, her hemoglobin was improved today after I gave her an additional blood transfusion today. Patient's serum iron level was normal and I talked briefly with hematology by phone and they stated that the reason for the normal reading is the patient was taking iron as an outpatient. I did talk with the patient's PCP and suggested that she work the patient up for uterine fibroids because the patient has heavy menstrual cycles and I suggested the patient undergo colonoscopy to further investigate why she is iron deficient. Patient was given a dose of Venofer today in addition to packed red blood cells. On examination she appeared in good health and spirits, she does not appear to be in any distress. Vital signs as documented. Skin warm and dry and without overt rashes. Neck without JVD, thyroid appears normal, trachea is midline, neck is supple. Lungs clear, normal air movement was noted. Heart exam notable for regular rhythm, normal sounds and absence of murmurs, rubs or gallops. Abdomen unremarkable and without evidence of organomegaly, masses, or abdominal aortic enlargement, bowel sounds are present in all 4 quadrants, no abdominal tenderness was noted. Extremities nonedematous, no cyanosis was noted, no clubbing was noted. Neuro: Cranial nerves II through XII are grossly intact, no focal motor deficits were noted, sensation to light touch and pinprick is intact, motor exam 5/5 throughout. Psych: Patient is alert and oriented x3, she does not appear anxious or depressed, she does not appear agitated. Patient was discharged in stable condition today, I have reviewed Joel Borjsa's discharge summary including his medical assessment and plan of care and endorse it. Visit Charges OBSV E&M: [id number] Observation care discharge
== END 2020-09-27 15:16 | disposition home or self-care (01) ==
LOC: ED 13:00 → MS3 14:45
PROVIDERS: Admitting Provider Internal Medicine; Emergency Provider Emergency Medicine; PCP Nurse Practitioner Primary Care; Visit Provider Internal Medicine
DX: D50.9 Iron deficiency anemia, unspecified (principal); J45.909 Unspecified asthma, uncomplicated; Z79.899 Other long term (current) drug therapy
CPT/HCPCS: 36415; 36430; 80048; 82607; 82728; 83540; 83550; 85014; 85018; 85025; 85027; 86850; 86900; 86901; 86920; 86922; 96365; 96366; 99218; 99285; J7050; P9016; A4216; G0378; J2916

== ENCOUNTER 2020-11-11 00:23 | Emergency (ER) | payer MEDICAID, SELFPAY ==
[2020-09-26 14:02] VITALS: BMI 21.4
[2020-11-11 00:24] VITALS: BP 141/82; PULSE 85; RESP 16; TEMP 36.1; O2SAT 99; BMI 23.0
[2020-11-11 00:44] LABS: Absolute Lymphocyte Count 1.96 X10^3/uL (0.83-4.51); Absolute Neutrophil Count 2.6 X10^3/uL (2.0-7.7); Basophil# 0.05 X10^3/uL; Basophil% 0.9 % (0-1); Eosinophil# 0.33 X10^3/uL; Eosinophils% 6.2 % (0-5); Hemoglobin 10.7 g/dL (12.0-15.0); Lymphocyte # 1.96 X10^3/ul (0.83-4.51); Lymphocyte % 36.8 % (19-41); Mean Corp Hgb Conc 31.5 g/dL (32-36); Mean Corpuscular Hgb 25.3 pg (27.0-32.0); Mean Corpuscular Volume 80.4 fL (81-99); Mean Platelet Vol. 9.5 fl (6.2-12.0); Monocyte# 0.41 X10^3/uL; Monocyte% 7.7 % (0-10); NRBC Flagged by Analyzer 0 % (0-5); Neutrophil # 2.56 X10^3/uL (2.7-7.7); Neutrophil % 48.2 % (47-70); POSITIVE MORPHOLOGY YES; Platelet Count 237 K/mm3 (150-450); RBC Distribution Width CV 21.2 % (11.6-14.6); RBC Distribution Width SD 62.3 fl (35.1-43.9); Red Blood Count 4.23 M/mm3 (4.2-5.4); White Blood Count 5.3 K/mm3 (4.4-11.0)
[2020-11-11 00:46] LABS: Differential Indicated SCAN CRITERIA MET
[2020-11-11 00:57] LABS: Anion Gap 6 (5-15); BUN 12 mg/dL (7-18); BUN/Creat Ratio 17.8 RATIO (10-20); Calcium,Total 8.5 mg/dL (8.5-10.1); Chloride 105 mmol/L (98-107); Creatinine, Serum 0.67 mg/dL (0.55-1.02); EST Glomerular Filtration Rate 100 mL/min (>60); Est Glom Filt Rate - Afr Amer 121 mL/min (>60); Glucose 100 mg/dL (74-106); Potassium 3.5 mmol/L (3.5-5.1); Sodium Level 139 mmol/L (136-145)
[2020-11-11 01:07] LABS: Internal QC Validated? YES +Cl - CLEAR BKGD; Pregnancy, Serum, hCG Quali. NEGATIVE Negative
--- NOTE | 2020-11-11 01:26 | EDS_ITS ---
HPI HPI - Female History of Present Illness Chief Complaint: Vag Bleeding Informant: patient Pain Onset: Today Timing: Continuous Maximum Severity: Moderate Bleeding Issue: Positive for Vaginal bleeding and Passing clots Narrative Narrative: Patient was admitted earlier in the month for vaginal bleeding and was found to be anemic at the time. She is scheduled to follow-up with Dr. Perez. Prior similar symptoms: Yes Recent Illness/Hospitalization: Yes PFSH PFSH Medical History Anemia Asthma Migraines Home Medications Ferrex 150 Plus 150 mg PO DAILYCM 05/18/16 [History Last Taken Unknown] montelukast 10 mg PO DAILY 05/18/16 [History Last Taken Unknown] albuterol sulfate [Ventolin HFA] 1 - 2 puff INHALATION Q4H PRN PRN 08/20/17 [History Last Taken Unknown] ascorbic acid (vitamin C) 250 mg PO DAILY 09/26/20 [History Last Taken Unknown] cyanocobalamin (vitamin B-12) [Vitamin B-12] 1,000 mcg PO DAILY 09/26/20 [History Last Taken Unknown] Allergy/AdvReac Type Severity Reaction Status Date / Time Penicillins Allergy Rash Verified 11/11/20 00:26 Social History Smoking Status: Never smoker ROS ROS ED Constitutional Constitutional ED: Denies fever(s) Eyes Eyes: Denies change in vision ENT ENT ED: Denies ear pain Cardiovascular Cardiovascular: Denies chest pain Respiratory/Chest Respiratory/Chest: Denies dyspnea Gastrointestinal Gastrointestinal: Reports abdominal pain; Denies constipation, diarrhea, nausea or vomiting Genitourinary Genitourinary ED: Denies dysuria, hematuria or urinary frequency Musculoskeletal Musculoskeletal: Denies arthralgias or myalgias Integumentary Denies rash Neurologic Neurologic: Denies headache(s) Psychiatric Psychiatric: Denies depression Endocrine Endocrinology: Denies polyuria Hematologic/Lymphatic Hematologic/Lymphatic: Denies easy bleeding or easy bruising Allergic/Immunologic Allergic/Immunologic ED: Denies urticaria EXAM Physical Exam Const Vital Signs: 11/11/20 00:24 Temperature 97.0 F L Temperature Source Temporal Pulse Rate 85 Respiratory Rate 16 Blood Pressure 141/82 H Blood Pressure Mean 101 Pulse Ox 99 Oxygen Delivery Method Room Air Positive well nourished and well developed General Appearance ED: well developed HEENT Negative for trauma or tenderness Eyes EOMs intact bilaterally Neck supple Resp normal respiratory effort Cardio regular rate GI normal to inspection, nondistended, normoactive bowel sounds, soft to palpation, non-tender and non-distended Extremity normal to inspection Neuro oriented x3 Sensorium / Orientation: alert Psych mental status grossly normal Skin no rashes or lesions noted and no wounds MDM MDM MDM Narrative Medical decision making narrative: Patient is anemic at 10.7. This is actually increased from her hemoglobin mid September. She does not need emergent transfusion. Patient is otherwise stable. She was referred to follow-up with Dr. Perez. I advised her to call in the morning to see if she can get an appointment sooner than late November. If her bleeding worsens or she gets symptomatic like shortness of breath or lightheaded, she should return to the ED. All questions were answered. Patient was in agreement with the plan and will follow up tomorrow or return if worse. Lab Data Attestation: I reviewed the patient's lab results. Labs: Laboratory Results - last 24 hr 11/11/20 11/11/20 11/11/20 00:33 00:33 00:33 WBC 5.3 RBC 4.23 Hgb 10.7 L Hct 34.0 L MCV 80.4 L MCH 25.3 L MCHC 31.5 L RDW Std Deviation 62.3 H RDW Coeff of Jaclyn 21.2 H Plt Count 237 MPV 9.5 Immature Gran % (Auto) 0.200 Neut % (Auto) 48.2 Lymph % (Auto) 36.8 [place] % (Auto) 7.7 Eos % (Auto) 6.2 H Baso % (Auto) 0.9 Absolute Neuts (auto) 2.6 Absolute Lymphs (auto) 1.96 Nucleated RBC % 0 Sodium 139 Potassium 3.5 Chloride 105 Carbon Dioxide 28.0 Anion Gap 6 BUN 12 Creatinine 0.67 Estim Creat Clear Calc 93.40 Est GFR (MDRD) Af Amer 121 Est GFR (MDRD) Non-Af 100 BUN/Creatinine Ratio 17.8 Glucose 100 Calcium 8.5 Serum , Qual Blood Type A POSITIVE Antibody Screen NEGATIVE 11/11/20 00:39 WBC RBC Hgb Hct MCV MCH MCHC RDW Std Deviation RDW Coeff of Jaclyn Plt Count MPV Immature Gran % (Auto) Neut % (Auto) Lymph % (Auto) [place] % (Auto) Eos % (Auto) Baso % (Auto) Absolute Neuts (auto) Absolute Lymphs (auto) Nucleated RBC % Sodium Potassium Chloride Carbon Dioxide Anion Gap BUN Creatinine Estim Creat Clear Calc Est GFR (MDRD) Af Amer Est GFR (MDRD) Non-Af BUN/Creatinine Ratio Glucose Calcium Serum , Qual NEGATIVE Blood Type Antibody Screen Discharge Plan Triage Chief Complaint: Vag Bleeding ED Provider: Davis Gonzales Dx/Rx/DC Orders Clinical Impression: Abnormal vaginal bleeding Instructions: ED Dysfunctional Uterine Bleeding Prescriptions: No Action montelukast 10 MG tablet 10 mg PO DAILY RF: 0 Ferrex 150 Plus 150 MG capsule 150 mg PO DAILYCM RF: 0 albuterol sulfate [Ventolin HFA] 1 INHALER inhaler 1 - 2 puff inhalation Q4H PRN PRN (Reason: Asthma) RF: 0 cyanocobalamin (vitamin B-12) [Vitamin B-12] 1,000 mcg tablet 1,000 mcg PO DAILY RF: 0 ascorbic acid (vitamin C) 250 mg tablet 250 mg PO DAILY RF: 0 Primary Care Provider: Victor Manuel Du NP Referrals: Jada Perez MD [STAFF PHYSICIAN] - (call in the morning) Disposition Disposition: Home, Self Care
== END 2020-11-11 01:37 | disposition home or self-care (01) ==
PROVIDERS: Emergency Provider Emergency Medicine; PCP Nurse Practitioner Primary Care
DX: N93.9 Abnormal uterine and vaginal bleeding, unspecified (principal); J45.909 Unspecified asthma, uncomplicated; Z79.899 Other long term (current) drug therapy; N85.01 Benign endometrial hyperplasia; N83.202 Unspecified ovarian cyst, left side; M99.71 Connective tissue and disc stenosis of intervertebral foramina of cervical region; D64.9 Anemia, unspecified
CPT/HCPCS: 49322; 58563; 36415; 80048; 84703; 85025; 85027; 86850; 86900; 86901; 86920; 86922; 87426; 88305; 99251; 99282; J7120; A4216; G0463; J2405

== ENCOUNTER 2020-11-11 16:45 | Day surgery (SDC) | payer MEDICAID, SELFPAY ==
[2020-11-11] VITALS (8 sets, daily range): BP systolic 100–120; BP diastolic 65–90; PULSE 72–91; RESP 14–18; TEMP 35.5–36.6; O2SAT 98–100; BMI 23.0; BMI 22.0; BMI 21.9
--- NOTE | 2020-11-11 | EMB_PTH ---
PATIENT: KEVIN CRAWFORD LOC: [facility] [place] U#:[id number] AGE/SX: 45/F ROOM: RE11/11/[address]: Dr. Silvia Mccormick MD : 1975 BED: DIS: 11/12/2020 SPEC #: [id number] RECD: 11/11/20 07:30 STATUS: KENYON JACKSON #: [id number] LINDA: 11/11/20 00:[address]: Silvia Mccormick DEPT: SURGICAL PATHOLOGY RECD BY: Aldair Koroma ENTERED: 11/12/20 09:10 SP TYPE: ENDOM BX/C HANK DR: LISA Miller Tissues: Endometrium, NOS Procedures: Surgery Specimen Level IV HEADER OPERATION: Hysteroscopy, D & C Saniya PRE-OP DIAGNOSIS: Abnormal uterine bleeding TISSUE SUBMITTED: Endometrial curettings MICROSCOPIC DIAGNOSIS Endometrium, curettings: Simple hyperplasia without atypia. AM:deena 11/16/2020 MICROSCOPIC DESCRIPTION Slides are reviewed. GROSS DESCRIPTION Received in fixative is one container labeled with the patient's name and designated endometrial curettings. The specimen consists of multiple fragments of kearney-pink soft tissue mixed with hemorrhagic soft tissue that in aggregate measure 5 x 3 x 0.6 cm. The entire specimen is submitted in four cassettes. / SJ:deena 11/12/20 TC:5 CPT: 39502
--- NOTE | 2020-11-11 17:04 | PCM.HP.OB ---
HPI - General HPI Narrative KEVIN IBARRA, is a 45 F who presents from the office for hysteroscopy, D&C, endometrial ablation for acute heavy menstrual bleeding. Patient had prior episode of heavy bleeding in September that resulted in a blood transfusion due to severe anemia. She was seen in the ER overnight last night due to heavy bleeding but was discharged. She presented to the office today and was found to have heavy bleeding making it impossible to visualize her cervix and the recommendation was made to proceed with emergency D&C with endometrial ablation. PFSH PFS Medical History (Updated 11/11/20 @ 16:[address] Silvia Mccormick MD) Anemia Asthma Migraines Home Medications Ferrex 150 Plus 150 mg PO DAILYCM 05/18/16 [History Last Taken Unknown] montelukast 10 mg PO DAILY 05/18/16 [History Last Taken Unknown] albuterol sulfate [Ventolin HFA] 1 - 2 puff INHALATION Q4H PRN PRN 08/20/17 [History Last Taken Unknown] ascorbic acid (vitamin C) 250 mg PO DAILY 09/26/20 [History Last Taken Unknown] cyanocobalamin (vitamin B-12) [Vitamin B-12] 1,000 mcg PO DAILY 09/26/20 [History Last Taken Unknown] Allergy/AdvReac Type Severity Reaction Status Date / Time Penicillins Allergy Rash Verified 11/11/20 16:50 Surgical History (Updated 11/11/20 @ 15:56 by Asiya Seymour) S/P tubal ligation Social History (Updated 11/11/20 @ 15:57 by Asiya Seymour) Smoking Status: Never smoker alcohol intake: never substance use type: does not use caffeine: Yes seatbelt use: always do you feel safe at home: Yes additional social history: - Cole History 4 Elective abortions Hx Para 4 Spontaneous abortions Hx # Term Pregnancies Ectopic pregnancies Hx # Pregnancies Multiple births # of living children Past Pregnancies Del. Date Name GA/Weeks Outcome Route Bth Weight Infant Gen Labor Lgth Anesthesia Del Locatn Provider FOB Unknown Coral Unknown Nick Unknown Jasmeet Unknown Caleb ROS Eyes Eyes: Reports systems reviewed and no addt'l complaints, except as documented ENT HEENT: Reports systems reviewed and no addt'l complaints, except as documented Cardiovascular Cardiovascular: Reports systems reviewed and no addt'l complaints, except as documented Respiratory/Chest Respiratory/Chest: Reports systems reviewed and no addt'l complaints, except as documented Gastrointestinal Gastrointestinal: Reports systems reviewed and no addt'l complaints, except as documented Genitourinary Genitourinary: Reports systems reviewed and no addt'l complaints, except as documented Musculoskeletal Musculoskeletal: Reports systems reviewed and no addt'l complaints, except as documented Integumentary Integumentary: Reports systems reviewed and no addt'l complaints, except as documented Neurologic Neurologic: Reports systems reviewed and no addt'l complaints, except as documented Psychiatric Psychiatric: Reports systems reviewed and no addt'l complaints, except as documented Endocrine Endocrinology: Reports systems reviewed and no addt'l complaints, except as documented Hematologic/Lymphatic Hematologic/Lymphatic: Reports systems reviewed and no addt'l complaints, except as documented Allergic/Immunologic Allergic/Immunologic: Reports systems reviewed and no addt'l complaints, except as documented Vital Signs Vital Signs Vital Signs: 11/11/20 16:46 Temperature 97.7 F L Temperature Source Temporal Pulse Rate 82 Respiratory Rate 14 Blood Pressure 107/73 Blood Pressure Mean 84 Pulse Ox 99 Oxygen Delivery Method Room Air Weight Weight: 132 lb 4.438 oz Body Mass Index (BMI) 22.0 Physical Exam Const alert, oriented x3, no apparent distress, average body habitus, healthy appearing and well nourished HEENT normocephalic and moist oral mucous membranes Head and Scalp: atraumatic Eyes PERRL and EOMs intact bilaterally Neck full ROM Resp normal respiratory effort, no retractions and no use of accessory muscles Cardio regular rate and regular rhythm GI soft to palpation, non-tender and non-distended Extremity normal to inspection and full ROM Skin no rashes or lesions noted Neuro no focal motor deficits and no sensory deficits noted Psych mental status grossly normal, affect normal, speech normal and activity/motor behavior normal Labs Labs Labs: Blood Type A POSITIVE Antibody Screen NEGATIVE Hct 34.0 % (37-47) L Hgb 10.7 g/dL (12.0-15.0) L Assessment & Plan (1) Abnormal uterine bleeding (AUB): PLAN: Patient presents with acute AUB Had episode of bleeding last month that required a blood transfusion due to severity of anemia Bleeding started yesterday and she has been soaking through 3-4 pads per hour On exam, patient actively bleeding with blood limiting ability to visualize the cervix Discussed with patient that I recommend proceeding with an emergency dilation and curettage with endometrial ablation. he nature of the procedure was described to the patient. The risks, benefits, indications, and alternatives to the procedure were discussed with the patient including bleeding, infection, and damage to surrounding structures. Discussed that risks are very low with D&C. Discussed the possibility of perforation and that this could require laparotomy or laparoscopy. Discussed the possibility of damage to surrounding structures including uterus, tubes, ovaries, bowel, or bladder. Understands the risk of hospitalization or reoperation. Voices understanding and agrees to proceed. Aware that if this does not stop her bleeding, the next step would be to perform a hysterectomy Surgical team notified. Will plan for hysteroscopy, D&C, endometrial ablation.
[2020-11-11 17:11] LABS: Absolute Lymphocyte Count 1.48 X10^3/uL (0.83-4.51); Absolute Neutrophil Count 4.3 X10^3/uL (2.0-7.7); Basophil# 0.06 X10^3/uL; Basophil% 0.9 % (0-1); Eosinophil# 0.14 X10^3/uL; Eosinophils% 2.2 % (0-5); Hematocrit 33.2 % (37-47); Hemoglobin 10.5 g/dL (12.0-15.0); Lymphocyte # 1.48 X10^3/ul (0.83-4.51); Lymphocyte % 22.8 % (19-41); Mean Corp Hgb Conc 31.6 g/dL (32-36); Mean Corpuscular Hgb 25.5 pg (27.0-32.0); Mean Corpuscular Volume 80.6 fL (81-99); Mean Platelet Vol. 9.3 fl (6.2-12.0); Monocyte# 0.48 X10^3/uL; Monocyte% 7.4 % (0-10); NRBC Flagged by Analyzer 0 % (0-5); Neutrophil # 4.31 X10^3/uL (2.7-7.7); Neutrophil % 66.4 % (47-70); POSITIVE MORPHOLOGY YES; Platelet Count 273 K/mm3 (150-450); RBC Distribution Width CV 21.2 % (11.6-14.6); RBC Distribution Width SD 62.5 fl (35.1-43.9); Red Blood Count 4.12 M/mm3 (4.2-5.4); White Blood Count 6.5 K/mm3 (4.4-11.0)
--- NOTE | 2020-11-11 17:12 | NURSING ---
SURGERY OB [facility] HYSTEROSCOPY, D AND C, ENDOMETRIAL ABLATION
--- NOTE | 2020-11-11 17:15 | ED.RN ---
Pt placed on bedpan. Voided approx 300 cc urine. Several medium size clots noted, 1 clot size of baseball. Pt tolerated well. Cleaned up, fresh attends
--- NOTE | 2020-11-11 17:16 | NURSING ---
OB [facility] HYSTEROSCOPY, D AND C, ENDOMETRIAL ABLATION
[2020-11-11] MEDS: Lactated Ringers 1,000 ML 999 ML IV (17:27)
[2020-11-11] MEDS: Lactated Ringers 1,000 ML 125 ML IV ×2 (17:28→19:00)
[2020-11-11 17:29] LABS: Anion Gap 4 (5-15); BUN 7 mg/dL (7-18); BUN/Creat Ratio 9.9 RATIO (10-20); Calcium,Total 9.1 mg/dL (8.5-10.1); Chloride 106 mmol/L (98-107); EST Glomerular Filtration Rate 94 mL/min (>60); Est Glom Filt Rate - Afr Amer 114 mL/min (>60); Glucose 90 mg/dL (74-106); Potassium 3.3 mmol/L (3.5-5.1); Sodium Level 138 mmol/L (136-145)
[2020-11-11 17:34] LABS: Differential Indicated SCAN CRITERIA MET
[2020-11-11 17:51] LABS: Anisocytosis 1+; Differential Comment SCANNED; Hypochromasia 1+; Microcytosis 1+; Ovalocyte 1+
--- NOTE | 2020-11-11 18:07 | PCM.OPRPT ---
Problems Associated Problem List Diagnoses (1) Abnormal uterine bleeding (AUB): Report of Operation Date of Procedure: 11/11/20 Pre-Operative Diagnosis: Acute abnormal uterine bleeding Post-Operative Diagnosis: Acute abnormal uterine bleeding, uterine perforation Surgery/Procedure Performed:: Hysteroscopy, D&C, attempted endometrial ablation, diagnostic laparoscopy, drainage of ovarian cyst Description of Surgical Findings:: Extremely proliferative appearing endometrium, anterior uterine perforation. Hemostatic uterine perforation on laparoscopy. Large left functional appearing ovarian cyst Surgeon: Silvia Mccormick employment services director: Mia Landry Type of Anesthesia: General Specimen's removed: [facility] Estimated Blood Loss (mL): 25 Description of Procedure: Patient was taken to the operating where anesthesia with difficulty. She was prepped and draped in the dorsolithotomy position with yellowfin stirrups. A weighted speculum was placed in the posterior aspect of the vagina and the anterior lip of the cervix was grasped with a single-tooth tenaculum. Cervix was sequentially dilated to accommodate a 5 mm hysteroscope. The hysteroscope was introduced into the uterine cavity and the above findings were noted. The hysteroscope was then removed and a sharp curettage was performed. The total cavity length was found to be 6 cm. The Saniya device was inserted into the uterine cavity. A cervical seal was unable to be obtained and the integrity test was failed. After attempting to increase the size of the balloon without success, the hysteroscope was reinserted and a uterine perforation was noted. The ablation was aborted and the decision was made to proceed with laparoscopy. The patient has been was contacted and consent was obtained to proceed with diagnostic laparoscopy. The umbilicus was grasped with towel clamps. 10cc of 0.25% marcaine was used to anesthetize the umbilicus. A 5mm incision was made at the base of the umbilicus. A veress needle was inserted without difficulty and intra-abdominal placement was confirmed using the water-drop test. The abdomen was insufflated to 15 mmHg and the veress needle was removed. A 5mm optiview trochar was then placed under direct visualization. Initial survey of the abdominal cavity revealed no evidence of trauma. The above findings were noted. Additional 5mm ports were placed in the right and left lower quadrants. Inspection of the pelvis revealed no evidence of trauma to surrounding bowel or bladder. The perforation was noted to be anterior. A left ovarian cyst was noted and was drained for clear fluid. A [place] grasper attached to monopolar was used to obtain hemostasis. Kaye was applied to the perforation. The procedure was deemed complete. All instruments were removed from the abdominal cavity. The port sites were closed in a simple interrupted fashion using 3-0 monocryl and sterile dressings were placed. The uterine manipulator was removed. The patient was awakened from anesthesia and taken to the recovery room in stable condition. Complications Uterine perforation Admit VTE Documentation VTE Present on Admission: No VTE Mechan Device Prophylaxis: SCD's VTE Pharm Prophylaxis ordered?: No Multi Select Codes Urinary/Genital Urinary/Genital CPT Codes: 04166 Hysteroscopy,EMC, Polypectomy and Other Procedure See Report (Diagnostic laparoscopy)
[2020-11-11] MEDS: Ibuprofen 400 MG Tablet 800 MG PO (22:08)
[2020-11-11] MEDS: Acetaminophen 500 MG Tablet 1000 MG PO (22:08)
[2020-11-11] MEDS: Docusate Sodium 100 MG Capsule PO (22:09)
[2020-11-12 01:25] VITALS: BP 104/76; PULSE 81; RESP 16; TEMP 36.6; O2SAT 98
[2020-11-12] MEDS: Acetaminophen 500 MG Tablet 1000 MG PO ×2 (03:00→09:10)
[2020-11-12 05:30] VITALS: BP 100/56; PULSE 87; RESP 16; TEMP 36.9; O2SAT 99
[2020-11-12] MEDS: Ibuprofen 400 MG Tablet 800 MG PO (05:36)
[2020-11-12 06:22] LABS: Hematocrit 26.3 % (37-47); Hemoglobin 8.3 g/dL (12.0-15.0); Mean Corp Hgb Conc 31.6 g/dL (32-36); Mean Corpuscular Hgb 25.5 pg (27.0-32.0); Mean Corpuscular Volume 80.7 fL (81-99); POSITIVE MORPHOLOGY YES; Platelet Count 191 K/mm3 (150-450); RBC Distribution Width CV 21.3 % (11.6-14.6); RBC Distribution Width SD 63.3 fl (35.1-43.9); Red Blood Count 3.26 M/mm3 (4.2-5.4); White Blood Count 4.8 K/mm3 (4.4-11.0)
[2020-11-12 06:30] VITALS: O2SAT 99
[2020-11-12 06:36] LABS: Scan Indicated on CBC? Y/N YES- FLAGS NOTED
--- NOTE | 2020-11-12 08:35 | PN.OBGYN_ITS ---
Subjective Subjective Patient seen and examined. Reports doing well. States has had very minimal bleeding overnight. Reports very little pain. Tolerating p.o. Objective Data Objective Data Vital Signs: Vital Signs Temp Pulse Resp BP Pulse Ox 98.4 F 87 16 100/56 L 99 11/12/20 05:30 11/12/20 05:30 11/12/20 05:30 11/12/20 05:30 11/12/20 06:30 Oxygen Delivery Method Room Air Weight: 132 lb Body Mass Index (BMI) 21.9 Intake & Output: Intake and Output for Last 24 Hours 11/10/20 11/11/20 11/12/20 23:59 23:59 23:59 Intake Total 2325 / 2325 Output Total 475 / 475 450 / 450 Balance 1850 / 1850 -450 / -450 Lab / Micro Data Result Diagrams: 11/12/20 05:37 11/11/20 17:00 Labs: Laboratory Results - last 24 hr 11/11/20 11/11/20 11/11/20 17:00 17:00 17:00 WBC 6.5 RBC 4.12 L Hgb 10.5 L Hct 33.2 L MCV 80.6 L MCH 25.5 L MCHC 31.6 L RDW Std Deviation 62.5 H RDW Coeff of Jaclyn 21.2 H Plt Count 273 MPV 9.3 Immature Gran % (Auto) 0.300 Neut % (Auto) 66.4 Lymph % (Auto) 22.8 [place] % (Auto) 7.4 Eos % (Auto) 2.2 Baso % (Auto) 0.9 Absolute Neuts (auto) 4.3 Absolute Lymphs (auto) 1.48 Nucleated RBC % 0 Differential Comment SCANNED Hypochromasia 1+ Anisocytosis 1+ Microcytosis 1+ Ovalocytes 1+ Sodium 138 Potassium 3.3 L Chloride 106 Carbon Dioxide 28.0 Anion Gap 4 L BUN 7 Creatinine 0.70 Estim Creat Clear Calc 89.40 Est GFR (MDRD) Af Amer 114 Est GFR (MDRD) Non-Af 94 BUN/Creatinine Ratio 9.9 L Glucose 90 Calcium 9.1 Blood Type A POSITIVE Antibody Screen NEGATIVE Crossmatch See Detail 11/12/20 05:37 WBC 4.8 RBC 3.26 L Hgb 8.3 L Hct 26.3 L MCV 80.7 L MCH 25.5 L MCHC 31.6 L RDW Std Deviation 63.3 H RDW Coeff of Jaclyn 21.3 H Plt Count 191 MPV 10.0 Immature Gran % (Auto) Neut % (Auto) Lymph % (Auto) [place] % (Auto) Eos % (Auto) Baso % (Auto) Absolute Neuts (auto) Absolute Lymphs (auto) Nucleated RBC % Differential Comment Hypochromasia Anisocytosis Microcytosis Ovalocytes Sodium Potassium Chloride Carbon Dioxide Anion Gap BUN Creatinine Estim Creat Clear Calc Est GFR (MDRD) Af Amer Est GFR (MDRD) Non-Af BUN/Creatinine Ratio Glucose Calcium Blood Type Antibody Screen Crossmatch Micro: Microbiology 11/11/20 17:22 Mucosa - Nose SARS-CoV-2 Antigen (Rapid) - Final ROS Constitutional Constitutional: Denies fever(s) Cardiovascular Cardiovascular: Denies chest pain, dyspnea or lightheadedness Gastrointestinal Gastrointestinal: Reports abdominal pain; Denies constipation or diarrhea Neurologic Neurologic: Denies dizziness or headache(s) Physical Exam Const alert, oriented x3, no apparent distress, average body habitus, healthy appearing and well nourished HEENT normocephalic Head and Scalp: atraumatic Eyes PERRL and EOMs intact bilaterally Neck full ROM Lymph Lymphatic: no lymphadenopathy noted Resp normal respiratory effort, no retractions and no use of accessory muscles Cardio regular rate GI soft to palpation, non-tender and non-distended Extremity normal to inspection and no clubbing, cyanosis or edema Skin no rashes or lesions noted Neuro no focal motor deficits and no sensory deficits noted Psych mental status grossly normal, affect normal and speech normal Assessment & Plan (1) Abnormal uterine bleeding (AUB): PLAN: Postop day 1 status post hysteroscopy, D&C, attempted endometrial ablation, diagnostic laparoscopy Bleeding minimal this morning Patient meeting postoperative milestones Pain control Discussed expectant management of bleeding versus initiation of progesterone therapy to maintain thin uterine lining. Patient agreeable to initiation of progesterone Plan for discharge to home later today
--- NOTE | 2020-11-12 08:37 | PCM.DC ---
Discharge Instructions Diet Discharge Diet: No restrictions Activity Discharge Activity: May Not Drive (While on narcotic pain medication) and May Shower May resume sexual activity in: 1-2 weeks Lifting Restrictions: No lifting greater than 20 pounds until postop visit Dressing / Incision Call your doctor if your incision/area has: Continuous Slow Oozing, Sudden Increased Bleeding, Increased Pain/ Swelling, Increased Redness, Foul Smelling Discharge and Swelling at the incision site Call your doctor if you observe: Fever of 101 or Higher, Inability to urinate, Using more than 1 pad per hour, Shortness of breath, Dizziness, Fainting spells, Chest pain and Uncontrolled pain Remove Dressing in: 1 week Cleanse incision/area with: Soap & Water Follow Up Care Please Follow Up With: Silvia Mccormick MD When: 2 weeks Test Results: Test results from this visit will be discussed in further detail at your follow-up appointment, if applicable. Discharge Plan Admission Primary Reason for Your Visit: Abnormal uterine bleeding Attending Provider: Silvia Mccormick Primary Care Provider: Victor Manuel Du NP Instructions Patient Instructions: Dilation and Curettage Discharge Orders/Prescriptions Prescriptions: New norethindrone acetate [Aygestin] 5 mg tablet 5 mg PO DAILY Qty: 30 RF: 6 oxycodone 5 mg capsule 5 mg PO Q6H PRN (Reason: pain) 3 Days Qty: 10 RF: 0 ibuprofen 800 mg tablet 800 mg PO Q8H PRN (Reason: pain) Qty: 30 RF: 1 Continued montelukast 10 MG tablet 10 mg PO DAILY RF: 0 Ferrex 150 Plus 150 MG capsule 150 mg PO DAILYCM RF: 0 albuterol sulfate [Ventolin HFA] 1 INHALER inhaler 1 - 2 puff inhalation Q4H PRN PRN (Reason: Asthma) RF: 0 cyanocobalamin (vitamin B-12) [Vitamin B-12] 1,000 mcg tablet 1,000 mcg PO DAILY RF: 0 ascorbic acid (vitamin C) 250 mg tablet 250 mg PO DAILY RF: 0 Referrals / Follow Up: Victor Manuel Du NP, [employer] [Primary Care Provider] - Disposition Disposition (needs filled in before D/C Order can be placed): Home, Self Care
[2020-11-12 09:09] VITALS: BP 102/65; PULSE 80; RESP 16; TEMP 36.6; O2SAT 97
[2020-11-12] MEDS: Megestrol 40 MG Tablet PO (09:10)
[2020-11-12] MEDS: Docusate Sodium 100 MG Capsule PO (09:10)
[2020-11-12] MEDS: Montelukast 10 MG Tablet PO (09:11)
== END 2020-11-12 13:30 | disposition home or self-care (01) ==
LOC: ED 17:21 → SDC 17:26 → ACINP 17:27 → MS3 11-12 08:38
PROVIDERS: PCP Nurse Practitioner Primary Care; Visit Provider Obstetrics & Gynecology
PROC: 0U5B8ZZ Destruction of Endometrium, Via Natural or Artificial Opening Endoscopic (ICD-10-PCS; CPT 58558; principal; 2020-11-11 17:45)
DX: N85.01 Benign endometrial hyperplasia (principal); N83.202 Unspecified ovarian cyst, left side; N99.71 Accidental puncture and laceration of a genitourinary system organ or structure during a genitourinary system procedure; D64.9 Anemia, unspecified; J45.909 Unspecified asthma, uncomplicated
CPT/HCPCS: 00952; 49322; 58563; 36415; 80048; 85025; 85027; 86850; 86900; 86901; 86920; 86922; 87426; 88305; 99251; J7120; A4216; G0463; J2405

== ENCOUNTER → 2021-02-14 14:01 | Outpatient (CLI) | payer MEDICAID, SELFPAY ==
[2021-02-14 14:16] LABS: Absolute Lymphocyte Count 1.51 X10^3/uL (0.83-4.51); Absolute Neutrophil Count 2.4 X10^3/uL (2.0-7.7); Basophil# 0.05 X10^3/uL; Basophil% 1.1 % (0-1); Eosinophil# 0.21 X10^3/uL; Eosinophils% 4.6 % (0-5); Hematocrit 45.2 % (37-47); Hemoglobin 14.7 g/dL (12.0-15.0); Lymphocyte # 1.51 X10^3/ul (0.83-4.51); Lymphocyte % 33.4 % (19-41); Mean Corp Hgb Conc 32.5 g/dL (32-36); Mean Corpuscular Hgb 27.7 pg (27.0-32.0); Mean Corpuscular Volume 85.3 fL (81-99); Mean Platelet Vol. 9.4 fl (6.2-12.0); Monocyte# 0.36 X10^3/uL; NRBC Flagged by Analyzer 0 % (0-5); Neutrophil # 2.38 X10^3/uL (2.7-7.7); Neutrophil % 52.7 % (47-70); Platelet Count 330 K/mm3 (150-450); RBC Distribution Width CV 12.8 % (11.6-14.6); RBC Distribution Width SD 39.8 fl (35.1-43.9); White Blood Count 4.5 K/mm3 (4.4-11.0)
== END ==
PROVIDERS: PCP Nurse Practitioner Primary Care; Referring Provider Obstetrics & Gynecology; Visit Provider Obstetrics & Gynecology
DX: D50.9 Iron deficiency anemia, unspecified (principal)
CPT/HCPCS: 36415; 85025

== ENCOUNTER 2021-03-01 07:42 | Day surgery (SDC) | payer MEDICAID, SELFPAY ==
[2021-02-28 15:24] LABS: Prothrombin Time (Protime)PT. 12.7 SECONDS (11.7-14.9)
[2021-02-28 15:25] LABS: Partial Thromboplast Time 27.5 Seconds (24.1-36.2)
[2021-02-28 15:52] LABS: Magnesium 2.1 mg/dL (1.6-2.6)
[2021-03-01] VITALS (14 sets, daily range): BP systolic 105–128; BP diastolic 66–81; PULSE 75–92; RESP 12–18; TEMP 36.3–37.6; O2SAT 97–100; BMI 25.6; BMI 26.4
[2021-03-01] MEDS: dexAMETHasone 10 MG/ML Vial 8 MG IV (07:00)
[2021-03-01] MEDS: Lactated Ringers 1,000 ML 40 ML IV ×2 (07:00→19:00)
[2021-03-01] MEDS: Phenazopyridine 95 MG Tablet 190 MG PO (09:00)
[2021-03-01] MEDS: Scopolamine 1mg/72hr Patch 1 PATCH TD (09:00)
[2021-03-01] MEDS: Celecoxib 200 MG Capsule 400 MG PO (09:00)
[2021-03-01] MEDS: Gabapentin 600 MG Tablet PO (09:01)
[2021-03-01] MEDS: Acetaminophen 500 MG Tablet 1000 MG PO ×3 (09:01→22:36)
[2021-03-01] MEDS: Enoxaparin 40 MG/0.4 ML Syringe SC (09:01)
[2021-03-01] MEDS: Lactated Ringers 1,000 ML 70 ML IV (09:03)
--- NOTE | 2021-03-01 09:26 | EX.PCM.OBRPT ---
Assessment & Plan (1) Microcytic anemia: COMMENT: s/p transfusion, continue iron, cbc repeat ordered (2) Abnormal uterine bleeding (AUB): COMMENT: plan TVHBS. (3) Simple endometrial hyperplasia without atypia: COMMENT: plan hyst
--- NOTE | 2021-03-01 09:31 | HP.PCM_ITS ---
History and Physical Date of Admission: 03/01/21 Vital Signs 02/08/21 11:32 Height 5 ft 4 in Weight: 157 lb BMI 26.9 BP 102/70 Intake Visit Reasons: consult [facility] [place] Drink/medicaid form needs signed Chief Complaint: hyster consult Collar Stitcher Required: No Is patient in pain?: No Allergies Penicillins Allergy (Verified 12/31/20 11:42) Rash Medications Ferrex 150 Plus 150 mg PO DAILYCM 05/18/16 [History Confirmed 02/08/21] montelukast 10 mg PO DAILY 05/18/16 [History Confirmed 02/08/21] albuterol sulfate [Ventolin HFA] 1 - 2 puff INHALATION Q4H PRN PRN 08/20/17 [History Confirmed 02/08/21] ascorbic acid (vitamin C) 250 mg PO DAILY 09/26/20 [History Confirmed 02/08/21] cyanocobalamin (vitamin B-12) [Vitamin B-12] 1,000 mcg PO DAILY 09/26/20 [History Confirmed 02/08/21] ibuprofen 800 mg PO Q8H PRN #30 tab 11/12/20 [Rx Confirmed 02/08/21] norethindrone acetate 5 mg tablet 5 mg PO DAILY #30 tab 11/25/20 [Rx Confirmed 02/08/21] oxycodone 5 mg capsule 5 mg PO Q6H PRN 3 Days #10 cap 11/25/20 [Rx Confirmed 02/08/21] Is last menstrual period known: No Post menopausal: No Patient : No : No PFSH Medical History Anemia Asthma Migraines Status post hysteroscopy (~11/11/20) Surgical History H/O dilation and curettage S/P tubal ligation Social History Smoking Status: Never smoker alcohol intake: never substance use type: does not use caffeine: Yes seatbelt use: always do you feel safe at home: Yes additional social history: - Cole HPI consult [facility] [place] Drink/medicaid form needs signed Details: KEVIN IBARRA is a 45 year old who presents for Female Reproductive History Cycle Length: 21-35 Bleeding Duration: 10 Questions: metorrhagia: Yes, sexually active: Yes, dyspareunia: No and PCB: No Menopausal Symptoms: No hot flashes, No night sweats, No weight change, No mood changes, No difficulty concentrating, No sleep problems and No change in libido Pregancy History 4 Elective abortions Hx Para 4 Spontaneous abortions Hx # Term Pregnancies Ectopic pregnancies Hx # Pregnancies Multiple births # of living children Past Pregnancies Del. Date Name GA/Weeks Outcome Route Bth Weight Infant Gen Labor Lgth Anesthesia Del Locatn Provider FOB Unknown Coral Unknown Nick Unknown Jasmeet Unknown Caleb ROS Const Constitutional: Reports system reviewed and no additional complaints, except as documented; Denies chills, fever(s) or night sweats Eyes Eyes: Reports system reviewed and no additional complaints, except as documented ENT ENT: Reports system reviewed and no additional complaints, except as documented Cardio Card: Reports system reviewed and no additional complaints, except as documented; Denies chest pain, leg edema or palpitations Resp Resp: Reports system reviewed and no additional complaints, except as documented; Denies dyspnea GI GI: Reports system reviewed and no additional complaints, except as documented; Denies constipation, nausea or vomiting : Reports system reviewed and no additional complaints, except as documented; Denies dysuria, hot flashes, pelvic pain, urinary frequency, urinary hesitancy, urinary urgency, vaginal discharge, vaginal odor or vaginal pruritus Musc Musc: Reports system reviewed and no additional complaints, except as documented Skin Skin/Breast: Reports system reviewed and no additional complaints, except as documented Neuro Neuro: Reports system reviewed and no additional complaints, except as documented Psych Psych: Reports system reviewed and no additional complaints, except as documented; Denies change in libido or difficulty concentrating Endo Endo: Reports system reviewed and no additional complaints, except as documented Sixto/Lymph Hematologic/Lymphatic: Denies easy bleeding, Denies easy bruising and Denies lymphadenopathy Exam Const General: cooperative, healthy appearing, comfortable, no acute distress and well developed Orientation: alert HENCT Head: normal to inspection and normocephalic Ears: hearing grossly normal bilaterally and external ears normal Nose: external nose normal and nares normal Face and sinus: normal facial exam Neck Neck: normal visual inspection and no lymphadenopathy Thyroid: thyroid normal Chest Chest palpation & inspection: normal inspection of the chest Resp Effort & Inspection: normal respiratory effort Auscultation: clear to auscultation bilaterally Cardio Rate: regular rate Rhythm: regular rhythm Heart Sounds: S1 normal and S2 normal GI Inspection: normal to inspection and non-distended Palpation: soft and no hepatosplenomegaly General: bladder normal to palpation External Female Exam: normal external appearance and normal appearance of the urethra Urethra: normal appearance of the urethra, normal palpation and no discharge Speculum Exam - Vagina: normal appearance of the vagina and normal vaginal discharge Speculum Exam - Cervix: normal appearance of the cervix and nontender Bimanual Exam- Vagina & Uterus: normal bimanual exam, uterine size normal, bladder normal to palpation, uterine shape normal, No tender, uterine mobility normal, consistency normal, normal palpation and non-tender Bimanual Exam- Adnexa, other: normal adnexae, adnexae mobile, no masses and norm al Pelvic Support: normal Musc Other: gross motor intact no deficits, full bilateral strength Skin General: no rashes or lesions noted Neuro General: patient alert, patient awake, moves all extremities and no focal motor deficits Motor: muscle tone normal throughout Extrem General: normal to inspection and no pedal edema Psych Appearance: grossly normal Mental Status: mental status grossly normal Affect: normal affect Speech and Movement: speech and movement normal Coding Level of Care Code No Charge Diagnoses Simple endometrial hyperplasia without atypia N85.01 Abnormal uterine bleeding (AUB) N93.9 Microcytic anemia D50.9 Assessment and Plan Assessment and Plan (1) Simple endometrial hyperplasia without atypia: Status: Acute Comment: plan hyst (2) Abnormal uterine bleeding (AUB): Status: Acute Comment: plan TVHBS. (3) Microcytic anemia: Status: Acute Comment: s/p transfusion, continue iron, cbc repeat ordered Plan - Dr. Jada Perez MD: After discussing the patient's diagnosis and treatment plan options, patient wishes to proceed with surgical management. I have discussed with the patient the risks, benefits, and alternatives of the procedure which include but are not limited to risks of anesthesia, bleeding, infection, possible damage to bowel, bladder, or surrounding vasculature which could lead to additional surgery to evaluate any complications. Patient agrees to procedure and wishes to proceed. ACOG/uptodate references given for additional information regarding procedure. UPDATE- I have seen the patient and performed any clinically relevant updates to the history and physical exam. Jada Perez MD
--- NOTE | 2021-03-01 09:45 | HYST_PTH ---
PATIENT: KEVIN CRAWFORD LOC: [facility] [place] U#:[id number] AGE/SX: 45/F ROOM: RE03/01/[address]: Dr. Jada Perez MD : 1975 BED: DIS: 03/02/2021 SPEC #: [id number] RECD: 03/01/21 12:23 STATUS: KENYON RENETTA #: [id number] LINDA: 03/01/21 09:[address]: Jada Perez DEPT: SURGICAL PATHOLOGY RECD BY: Juany Godfrey ENTERED: 03/01/21 12:59 SP TYPE: HYSTERECT OTHR DR: LISA Miller Tissues: Uterus, NOS Procedures: Surgery Specimen Level V HEADER OPERATION: ERAS, vaginal hysterectomy, salpingectomy PRE-OP DIAGNOSIS: Simple endometrial hyperplasia without atypia; abnormal uterine bleed, microcytic anemia TISSUE SUBMITTED: Cervix, uterus and bilateral fallopian tubes MICROSCOPIC DIAGNOSIS Uterus, hysterectomy: Cervix ? mild chronic inflammation and nabothian cysts. Endometrium ? simple cystic hyperplasia without atypia. 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 Right and left fallopian tubes ? benign paratubal cysts. MARIA EUGENIA:deena 03/04/2021 MICROSCOPIC DESCRIPTION Slides are reviewed. GROSS DESCRIPTION Received in fixative is one container labeled with the patient's name and designated uterus. The specimen consists of a uterus with attached cervix and detached right and left fallopian tubes. The uterus with cervix measures 10 x 6.5 x 5 cm and weighs 143 gm. The ectocervix is unremarkable. The cervical os is oval in contour. The endocervical canal measures 3.8 cm in length and is grossly unremarkable. The triangular endometrial cavity measures 4.4 x 4.4 cm. The velvety, light kearney endometrium measures up to 0.2 cm in thickness. The myometrium measures 2.5 cm in average thickness and contains a glistening, subserosal rubbery nodule measuring 1.2 cm in greatest dimension. The right and left fallopian tubes are similar in appearance with average lengths of 5 cm and average diameters of 0.5 cm. Both contain normal fimbrial ends. Medical Instrument Cable Fabricator sections are submitted in 11 cassettes as follows: 1??anterior cervix, 2 - posterior cervix, 3 - anterior myometrial wall, 4 & 5 - remainder of anterior endometrium with adjacent myometrium, 6 - posterior myometrial wall. 7 & 8 - remainder of posterior endometrium with adjacent myometrium, 9 - myometrial mass, 10 - one fallopian, 11 - the other fallopian tubes. / AM:deena 03/01/21 TC:5 CPT: 27889
--- NOTE | 2021-03-01 09:50 | SUR.PREOP ---
Negrita Quintanilla came to get the patient. I had magnesium and clindamycin running. She said that she would give the decadron that I saskia up in OR. I labeled the syringe and gave it to her to give.
[2021-03-01] MEDS: Vasopressin 20 UNITS/ML Vial (09:52)
[2021-03-01 09:55] LABS: Bedside Glucose 96 mg/dL (70-110)
--- NOTE | 2021-03-01 10:39 | PCM.OPRPT ---
Problems Associated Problem List Diagnoses (1) Abnormal uterine bleeding (AUB): (2) Microcytic anemia: (3) Simple endometrial hyperplasia without atypia: Report of Operation Date of Procedure: 03/01/21 Pre-Operative Diagnosis: see problem list Post-Operative Diagnosis: same Surgery/Procedure Performed:: TVH BS business process associate: Rochelle Melendez Type of Anesthesia: General Special Medications: none Specimen's removed: uterus, tubes Drains: romero Estimated Blood Loss (mL): 100 Fluids Replaced: crystalloid Description of Procedure: Patient was taken to the operating room and was placed under general anesthesia was prepped and draped in normal sterile fashion in the dorsal lithotomy position. Preoperative antibiotics and SCDs and Romero catheter was placed inside the bladder. Weighted speculum was placed in the vagina and the anterior and posterior lip of the cervix was grasped with 2 Tess clamps and circumferentially injected with dilute vasopressin. A circumferential incision was made with a scalpel and the posterior cul-de-sac was entered into sharply and a longneck speculum was placed. The anterior cul-de-sac was also dissected down and entered into sharply and the uterosacral ligaments were clamped cut and suture ligated bilaterally followed by the cardinal ligaments which were Clamped cut and suture ligated bilaterally with 0 Monocryl. The uterus serially descended and progressive bites were taken bilaterally up to the level of the utero-ovarian ligament bilaterally which was clamped transected and double ligated with 0 Monocryl suture and 0 Vicryl free tie. Bilateral fallopian tubes and ovaries were well visualized and noted be within normal limits and the bilateral fallopian tubes were transected across the base with a Greer clamp and removed and sutured with 0 Vicryl suture. Excellent hemostasis was noted. The vagina was closed with [id number] 0 Vicryl pop offs including the posterior and anterior peritoneum in the reapproximation. Excellent hemostasis was noted. All instruments removed from the vagina clear urine was noted at the end of the procedure and patient was awoken and taken recovery in stable condition. Grafts/Implants Used: none Complications none Admit VTE Documentation VTE Present on Admission: No VTE Mechan Device Prophylaxis: SCD's VTE Pharm Prophylaxis ordered?: Yes Multi Select Codes Urinary/Genital Urinary/Genital CPT Codes: 40185 TVH+BS/O <250gr uterus
--- NOTE | 2021-03-01 10:40 | EX.PCM.DISCH ---
Discharge Instructions Procedure Hysterectomy, Vaginal Diet Discharge Diet: No restrictions Activity Discharge Activity: Return to Normal Activity, May Not Drive (while taking narcotic pain medications.) and May Shower May resume sexual activity in: 6-8 weeks Dressing / Incision Call your doctor if your incision/area has: Continuous Slow Oozing, Sudden Increased Bleeding, Increased Pain/ Swelling, Increased Redness and Foul Smelling Discharge Call your doctor if you observe: Fever of 101 or Higher, Inability to urinate, Inability to have a bowel movement and Using more than 1 pad per hour Follow Up Care Please Follow Up With: Jaad Perez MD Test Results: Test results from this visit will be discussed in further detail at your follow-up appointment, if applicable. Discharge Plan Admission Primary Reason for Your Visit: hysterectomy Attending Provider: Jada Perez Primary Care Provider: Victor Manuel Du NP Discharge Orders/Prescriptions Prescriptions: New oxycodone-acetaminophen [Endocet] 5-325 mg tablet 1 tab PO Q4H PRN (Reason: pain) 7 Days Qty: 20 RF: 0 naproxen 250 MG tablet 250 - 500 mg PO Q8H PRN PRN (Reason: MILD PAIN) Qty: 30 RF: 1 Continued norethindrone acetate [Aygestin] 5 mg tablet 5 mg PO DAILY Qty: 30 RF: 12 montelukast 10 MG tablet 10 mg PO DAILY RF: 0 Ferrex 150 Plus 150 MG capsule 150 mg PO DAILYCM RF: 0 albuterol sulfate [Ventolin HFA] 1 INHALER inhaler 1 - 2 puff inhalation Q4H PRN PRN (Reason: Asthma) RF: 0 cyanocobalamin (vitamin B-12) [Vitamin B-12] 1,000 mcg tablet 1,000 mcg PO DAILY RF: 0 ascorbic acid (vitamin C) 250 mg tablet 250 mg PO DAILY RF: 0 ibuprofen 800 mg tablet 800 mg PO Q8H PRN (Reason: pain) Qty: 30 RF: 1 Referrals / Follow Up: Victor Manuel Du NP, [employer] [Primary Care Provider] - Disposition Disposition (needs filled in before D/C Order can be placed): Home, Self Care
[2021-03-01] MEDS: Ketorolac 30 MG/ML Syringe IV ×2 (13:00→22:37)
--- NOTE | 2021-03-01 14:19 | SUR.PHASEII ---
CBC DRAWN FROM ALEM AND SENT TO LAB
[2021-03-01 14:23] LABS: Hematocrit 43.2 % (37-47); Hemoglobin 13.8 g/dL (12.0-15.0); Mean Corp Hgb Conc 31.9 g/dL (32-36); Mean Corpuscular Hgb 27.6 pg (27.0-32.0); Mean Corpuscular Volume 86.4 fL (81-99); Mean Platelet Vol. 10.2 fl (6.2-12.0); Platelet Count 267 K/mm3 (150-450); RBC Distribution Width CV 12.8 % (11.6-14.6); RBC Distribution Width SD 40.3 fl (35.1-43.9)
[2021-03-01] MEDS: fentaNYL 100 MCG/2 ML Ampul 25 MCG IV (18:55)
--- NOTE | 2021-03-01 20:44 | PCS.PANDOC ---
PANDEMIC DOCUMENTATION INITIATED: Date: 12/27/2020 Time: 190
[2021-03-01] MEDS: Docusate Sodium 100 MG Capsule PO (22:36)
[2021-03-01] MEDS: 0.9% Saline Lock 10 ML Syringe IV (22:37)
[2021-03-02 00:03] VITALS: BP 129/66; PULSE 87; RESP 16; TEMP 36.8; O2SAT 98
[2021-03-02] MEDS: Ketorolac 30 MG/ML Syringe IV ×2 (03:53→09:14)
[2021-03-02] MEDS: Acetaminophen 500 MG Tablet 1000 MG PO ×2 (03:54→09:14)
[2021-03-02] MEDS: 0.9% Saline Lock 10 ML Syringe IV ×2 (03:55→09:14)
--- NOTE | 2021-03-02 03:58 | NURSING ---
pt came to the floor with a full bag of LR , did not scan a new one, let it run at the ordered 70ml/hr. Pt was to receive a 1000 ml total.
[2021-03-02 04:03] VITALS: BP 109/67; PULSE 73; RESP 16; TEMP 37.1; O2SAT 100
[2021-03-02 07:20] VITALS: O2SAT 98
[2021-03-02 07:37] VITALS: BP 115/63; PULSE 73; RESP 16; TEMP 36.7; O2SAT 100
--- NOTE | 2021-03-02 07:50 | PCM.PN.OB ---
Subjective Subjective patient recovering well, denies CP, SOB, N, or V. patient is ambulating, voiding ,tolerating adequate po, and pain is controlled with oral medications. Objective Data Objective Data Vital Signs: Vital Signs Temp Pulse Resp BP Pulse Ox 98.0 F 73 16 115/63 100 03/02/21 07:37 03/02/21 07:37 03/02/21 07:37 03/02/21 07:37 03/02/21 07:37 Oxygen Flow Rate (L/min) 6 Oxygen Delivery Method Room Air Weight: 158 lb 11.725 oz Body Mass Index (BMI) 26.4 Intake & Output: Intake and Output for Last 24 Hours 02/28/21 03/01/21 03/02/21 23:59 23:59 23:59 Intake Total 1503.42 / 1503.42 400 / 400 Output Total 1475 / 1475 Balance 1503.42 / 903.42 -1075 / -1075 Lab / Micro Data Result Diagrams: 03/01/21 14:10 Labs: Laboratory Results - last 24 hr 02/28/21 14:39: Blood Type Cancelled, Antibody Screen Cancelled 03/01/21 08:30: Blood Type A POSITIVE, Antibody Screen NEGATIVE 03/01/21 08:52: POC Glucose 96 03/01/21 14:10: WBC 11.0, RBC 5.00, Hgb 13.8, Hct 43.2, MCV 86.4, MCH 27.6, MCHC 31.9 L, RDW Std Deviation 40.3, RDW Coeff of Jaclyn 12.8, Plt Count 267, MPV 10.2 Micro: Microbiology 02/28/21 14:30 Interface Orders SARS-CoV-2 Antigen (Rapid) - Final Physical Exam Const alert, oriented x3 and no apparent distress Resp normal respiratory effort GI soft to palpation and non-distended Narrative: Minimal drainage on peripad Assessment & Plan (1) History of total vaginal hysterectomy (TVH): PLAN: patient is s/p TVH BS POD 1 1. routine ERAS protocol postop care- increase ambulation, encourage oral intake and oral control of pain. lovenox and scds for dvt prophylaxis, patient stable for discharge to home.
[2021-03-02] MEDS: Docusate Sodium 100 MG Capsule PO (09:14)
[2021-03-02] MEDS: Enoxaparin 40 MG/0.4 ML Syringe SC (09:14)
[2021-03-02 11:33] VITALS: BP 109/60; PULSE 78; RESP 16; TEMP 37; O2SAT 100
== END 2021-03-02 12:33 | disposition home or self-care (01) ==
LOC: SDC 07:45 → AC 07:46 → MS3 03-04 10:09
PROVIDERS: Anesthesiology; PCP Nurse Practitioner Primary Care; Referring Provider Obstetrics & Gynecology; Visit Provider Obstetrics & Gynecology
PROC: (CPT 58260; principal; 2021-03-01 09:25)
DX: N72 Inflammatory disease of cervix uteri (principal); N85.01 Benign endometrial hyperplasia; D25.9 Leiomyoma of uterus, unspecified; D50.9 Iron deficiency anemia, unspecified; Z20.822 Contact with and (suspected) exposure to COVID-19; J45.909 Unspecified asthma, uncomplicated; Z79.3 Long term (current) use of hormonal contraceptives; Z79.899 Other long term (current) drug therapy
CPT/HCPCS: 58262; 36415; 82962; 83735; 85027; 85610; 85730; 86850; 86900; 86901; 87426; 88307; 99251; C9803; J7120; A4216; G0463; J2405

== ENCOUNTER → 2021-03-14 | Outpatient (CLI) | payer MEDICAID, SELFPAY | END | disposition home or self-care (01) | LOC: LABSPEC 12:50 | PROVIDERS: PCP Nurse Practitioner Primary Care; Referring Provider Obstetrics & Gynecology; Visit Provider Obstetrics & Gynecology | DX: R30.0 Dysuria (principal) | CPT/HCPCS: 87086; 87088 ==

== ENCOUNTER → 2021-03-17 15:23 | Outpatient (CLI) | payer MEDICAID, SELFPAY | PROVIDERS: PCP Nurse Practitioner Primary Care; Referring Provider Obstetrics & Gynecology; Visit Provider Obstetrics & Gynecology | DX: N76.0 Acute vaginitis (principal) | CPT/HCPCS: 87070; 87205 ==

== ENCOUNTER → 2021-04-11 | Outpatient (CLI) | payer MEDICAID, SELFPAY | END | disposition home or self-care (01) | LOC: LABSPEC 11:42 | PROVIDERS: PCP Nurse Practitioner Primary Care; Visit Provider Obstetrics & Gynecology | DX: N89.8 Other specified noninflammatory disorders of vagina (principal) | CPT/HCPCS: 87070; 87205 ==

== ENCOUNTER 2021-12-18 14:34 | Emergency (ER) | payer MEDICAID, SELFPAY ==
[2021-12-18 14:36] VITALS: BP 131/82; PULSE 81; RESP 18; TEMP 36.6; O2SAT 99; BMI 27.0
--- NOTE | 2021-12-18 14:57 | EDS_ITS ---
HPI HPI - Female History of Present Illness Chief Complaint: Complaint Detail of Chief Complaint: Dysuria that started yesterday Informant: patient Narrative Narrative: Patient presents to the emergency department complaint of dysuria that started yesterday. Patient complains of frequency. She describes suprapubic abdominal discomfort. She denies back pain. She denies fever. She denies vomiting. She does not get frequent urinary tract infections. Prior similar symptoms: No PFSH PFSH Medical History Anemia Asthma History of edema Microcytic anemia Migraines Non-smoker Simple endometrial hyperplasia without atypia Status post hysteroscopy (~11/11/20) Wears glasses Home Medications albuterol sulfate 90 mcg/actuation aerosol inhaler (Ventolin HFA) 1 - 2 puff inhalation Q4H PRN PRN Asthma 08/20/17 [History Last Taken Unknown] ascorbic acid (vitamin C) 250 mg tablet 250 mg PO DAILY supplement 09/26/20 [History Last Taken 02/28/21 09:00] cyanocobalamin (vitamin B-12) 1,000 mcg tablet (Vitamin B-12) 1,000 mcg PO DAILY supplement 09/26/20 [History Last Taken 02/28/21 09:00] phenazopyridine 200 mg tablet (Pyridium) 200 mg PO TID #10 tabs 12/18/21 [Rx Last Taken Unknown] sulfamethoxazole 800 mg-trimethoprim 160 mg tablet 1 tab PO BID #6 TABLETS 12/18/21 [Rx Last Taken Unknown] Allergy/AdvReac Type Severity Reaction Status Date / Time Penicillins Allergy Rash Verified 12/18/21 14:46 Surgical History H/O bilateral salpingectomy H/O dilation and curettage History of [facility] S/P tubal ligation Social History Smoking Status: Never smoker alcohol intake: never substance use type: does not use caffeine: Yes seatbelt use: always do you feel safe at home: Yes additional social history: - Cole RODRIGUEZ ED Constitutional Constitutional ED: Reports systems reviewed and no addt'l complaints, except as documented; Denies body ache(s), change in weight or chills Eyes Eyes: Denies acute decrease in peripheral vision, change in vision, double vision or loss of vision ENT ENT ED: Reports none; Denies ear pain, lip swelling, loss taste/smell, neck pain, otalgia or sore throat Cardiovascular Cardiovascular: Reports none; Denies abdominal pain, chest pain with activity, leg edema, lightheadedness, palpitations, rapid heart rate or syncope Respiratory/Chest Respiratory/Chest: Reports none; Denies change in mental status, dry cough, dyspnea, hemoptysis, shortness of breath at rest or shortness of breath with exertion Gastrointestinal Gastrointestinal: Reports none; Denies abdominal pain, change in stool character, diarrhea, hematemesis, hematochezia, melena, rectal bleeding or vomiting Genitourinary Genitourinary ED: Reports none, dysuria and urinary frequency; Denies abdominal discomfort, anuria, genital pain or polyuria Musculoskeletal Musculoskeletal: Reports none; Denies arthralgias, back pain, difficulty walking, extremity pain, muscle weakness or myalgias Integumentary Reports none; Denies abscess or rash Neurologic Neurologic: Reports none; Denies abnormal gait, confusion, focal weakness, f requent falls, headache(s), loss of vision, numbness, paresthesias, radicular pain, vertigo or weakness Psychiatric Psychiatric: Reports systems reviewed and no addt'l complaints, except as documented and none; Denies behavioral changes, confusion, difficulty concentrating, hallucinations, suicidal ideation, tactile hallucinations or visual hallucinations Endocrine Endocrinology: Denies none, cold intolerance, excessive sweating, fatigue or heat intolerance Hematologic/Lymphatic Hematologic/Lymphatic: Reports none; Denies anemia, easy bleeding or easy bruising Allergic/Immunologic Allergic/Immunologic ED: Denies as per HPI, none, lip swelling, mouth swelling, throat swelling, tongue swelling or hives EXAM Physical Exam Const Vital Signs: 12/18/21 14:36 Temperature 98 F Temperature Source Temporal Pulse Rate 81 Respiratory Rate 18 Blood Pressure 131/82 H Blood Pressure Mean 98 Pulse Ox 99 Oxygen Delivery Method Room Air Positive well nourished and well developed General Appearance ED: well developed and NAD HEENT Reports TM's clear and moist mucous membranes normocephalic and atraumatic; Negative for trauma or tenderness Tympanic Membrane ED: Yes TM's clear Eyes PERRL and EOMs intact bilaterally General Eye ED: Negative for pale conjunctiva or scleral icterus Neck no lymphadenopathy, supple and no JVD General: Negative for tenderness Chest Wall inspection of chest normal and palpation of chest normal Chest: Negative for tenderness Resp normal respiratory effort and clear to auscultation bilaterally Effort and Inspection: Negative for respiratory distress or pain with movement Auscultation: Negative for rhonchi, wheezes or diminished lung sounds Cardio regular rate, regular rhythm, S1 normal heart sound, S2 normal heart sound and no murmurs Peripheral Pulses: pulses 2+ throughout GI soft to palpation, non-distended and no masses GI Narrative: Patient has some diffuse tenderness palpation over the suprapubic region. No significant guarding. No rebound, rigidity, or peritoneal signs. Back/Spine no CVA tenderness and no thoracic nor lumbar tenderness Extremity normal to inspection General Extremety ED: Negative for edema General Extremity: Negative for edema Neuro oriented x3, CN's II-XII intact bilaterally, no sensory deficits noted and gait normal Sensorium / Orientation: awake, alert, oriented to person, oriented to place and oriented to time Motor Exam: strength 5/5 throughout and strength abnormal Psych mental status grossly normal Skin no rashes or lesions noted and no wounds MDM MDM MDM Narrative Medical decision making narrative: Urinalysis that only showed 5-10 RBCs and 5-10 WBCs as well as +2 bacteria. I did obtain a CT scan of the M pelvis without contrast to rule out kidney stone and this was negative for kidney stone but she did have a left ovarian cyst. Patient was started on Bactrim and Pyridium in the department. I had a urine culture sent as well. Patient to follow-up with her primary care physician in 3 to 5 days. Lab Data Attestation: I reviewed the patient's lab results. Labs: Laboratory Results - last 24 hr 12/18/21 14:40 Urine Color Yellow Urine Clarity Clear Urine pH 6.0 Ur Specific [place] 1.020 Urine Protein Negative Urine Glucose (UA) Normal Urine Ketones Negative Urine Occult Blood 10 H Urine Nitrite Negative Urine Bilirubin Negative Urine Urobilinogen 1 H Ur Leukocyte Esterase 25 H Urine RBC 5-10 SEEN Urine WBC 5-10 SEEN Ur Squamous Epith Cells 0-5 SEEN Urine Bacteria 2+ Coarse Granular Casts 0-5 SEEN Urine Mucus 1+ Radiography Diagnostic Testing: Clinical Impression(s) from Imaging Studies Abdomen/Pelvis CT 12/18/21 15:23 IMPRESSION: (NOT LISTED IN ORDER OF SIGNIFICANCE) Hysterectomy. There is a left ovarian cyst. ACR White Paper guidelines (Eduardo, et. al. JACR 2020;17(2):248-254) recommend pelvic ultrasound to better characterize this cyst. Other findings as above. Electronically Signed: Cesar Austin MD at 16:00 EDT Reading Location ID and State: [facility] / [place] , Service support , Discharge Plan Triage Chief Complaint: Complaint ED Provider: Danish Escalera Dx/Rx/DC Orders Clinical Impression: UTI (urinary tract infection), Ovarian cyst Instructions: ED Ovarian Cyst, ED CYSTITIS Female Adult Prescriptions: New sulfamethoxazole-trimethoprim [sulfamethoxazole-trimethoprim] 800-160 mg tablet 1 tab PO BID Qty: 6 0RF phenazopyridine [Pyridium] 200 mg tablet 200 mg PO TID Qty: 10 0RF No Action albuterol sulfate [Ventolin HFA] 1 INHALER inhaler 1 - 2 puff inhalation Q4H PRN PRN (Reason: Asthma) cyanocobalamin (vitamin B-12) [Vitamin B-12] 1,000 mcg tablet 1,000 mcg PO DAILY Label Comments: Take 1 tablet by mouth once daily. ascorbic acid (vitamin C) 250 mg tablet 250 mg PO DAILY Label Comments: Take 1 tablet by mouth once daily. Primary Care Provider: ANKUSH DODGE Referrals: ANKUSH DODGE WRITER PRODUCER-C [Primary Care Provider] - 3-5 Days Disposition Disposition: Home, Self Care
[2021-12-18 15:17] LABS: Color, Urine Yellow (Yellow); Glucose, Dipstick Normal (Normal); Ketone-Dipstick Negative (Negative); Leukocyte Esterase-Dipstick 25 /ul (Negative); Nitrite-Dipstick Negative (Negative); Occult Blood-Urine 10 /ul (Negative); Protein-Dipstick Negative (Negative); Urine Bilirubin Dipstick Negative (Negative); Urine Clarity Clear (Clear); Urine Urobilinogen 1 mg/dl (Normal)
--- NOTE | 2021-12-18 15:23 | CT_ITS ---
STUDY: CT Abdomen And Pelvis W/O Contrast Injection 12/18/2021 3:57 PM REASON FOR EXAM: Female, 46 years old. ABDOMINAL PAIN abdominal pain TECHNIQUE: Transaxial images were obtained without oral contrast, and without intravenous contrast. Individualized dose optimization techniques were used for this CT. COMPARISON: [id number] FINDINGS: The visualized lung bases are unremarkable. The visualized portions of the heart are within normal limits. Unremarkable liver. Unremarkable gallbladder and extrahepatic biliary system. Unremarkable spleen. Unremarkable pancreas. Unremarkable bilateral adrenal glands. No acute findings of the right kidney. No acute findings of the left kidney. Unremarkable visualized stomach. Unremarkable small intestine. Unremarkable colon. The appendix is visualized and appears unremarkable. There are no acute findings of the abdominal aorta. Unremarkable inferior vena cava. Subcentimeter mesenteric lymph nodes. 45 mm cyst of the left ovary. This is 1 [place] unit. Unremarkable urinary bladder. There is absence of the uterus consistent with a prior hysterectomy. There is an umbilical hernia containing fat. Unremarkable osseous structures. CT/Abdomen/Pelvis without Cont IMPRESSION: (NOT LISTED IN ORDER OF SIGNIFICANCE) Hysterectomy. There is a left ovarian cyst. ACR White Paper guidelines (Clark, et. al. JACR 2020;17(2):248-254) recommend pelvic ultrasound to better characterize this cyst. Other findings as above. Electronically Signed: Cesar Austin MD at 16:00 EDT ,
[2021-12-18 15:36] LABS: Bacteria 2+ /hpf (None Seen); Mucous, Urine 1+ /hpf (<or=2+); Red Blood Cells-Urine 5-10 SEEN /hpf (0-5); Squamous Epithelial Cells - UA 0-5 SEEN /hpf (5-10); White Blood Cells 5-10 SEEN /hpf (0-5)
[2021-12-18 15:38] LABS: Coarse Granular Cast 0-5 SEEN /lpf (0-5 /lpf)
[2021-12-18] MEDS: Phenazopyridine 95 MG Tablet 190 MG PO (16:16)
[2021-12-18] MEDS: Smz/Tmp Ds Tablet 1 TABLET PO (16:16)
== END 2021-12-18 16:17 | disposition home or self-care (01) ==
PROVIDERS: Emergency Provider Emergency Medicine; PCP Nurse Practitioner; Visit Provider Emergency Medicine
DX: N39.0 Urinary tract infection, site not specified (principal); N83.202 Unspecified ovarian cyst, left side; R35.0 Frequency of micturition; J45.909 Unspecified asthma, uncomplicated; Z79.899 Other long term (current) drug therapy
CPT/HCPCS: 74176; 81001; 87086; 87088; 87186; 99283

== ENCOUNTER 2022-01-04 12:03 | Emergency (ER) | payer MEDICAID, SELFPAY ==
[2022-01-04 12:05] VITALS: BP 147/88; PULSE 65; RESP 17; TEMP 36.7; O2SAT 99; BMI 26.9
--- NOTE | 2022-01-04 12:42 | CT_ITS ---
STUDY: CT SOFT TISSUE NECK WITH CONTRAST REASON FOR EXAM: Female, 46 years old. Bilateral pain and swollen Lymph nodes RADIATION DOSAGE (If Supplied By Facility): CTDIvol = ( 18.62 ) mGy, DLP = ( 564.74 ) mGycm TECHNIQUE: The patient was scanned in a multi-detector CT scanner. High resolution transaxial imaging was performed following intravenous administration of IV 100mL Isovue-370. Sagittal and coronal images were reconstructed. Individualized dose optimization techniques were used for this CT. COMPARISON: None. FINDINGS: Normal bilateral parotid glands. Normal bilateral metal buildings assembler spaces. Normal bilateral parapharyngeal spaces. Normal bilateral carotid spaces. Normal bilateral sublingual and submandibular glands and spaces. Normal visualized nasopharynx. Normal retropharyngeal space. Normal perivertebral space. Normal visualized bilateral faucial tonsils. The visualized tongue, tongue base and oropharynx are normal. There are minimally enlarged lymph nodes of the neck, with preservation of normal fantasma architecture, consistent with a reactive lymph hyperplasia. There is no demonstrated solid or cystic mass lesion. There is no abnormal contrast enhancement. Normal epiglottis, bilateral vallecula and hypopharynx. The pre-epiglottic and paraglottic adipose spaces are normal. Normal visualized bilateral piriform sinuses, aryepiglottic folds, vocal cords, and arytenoid-cricoid articulations. Normal subglottic trachea. Normal bilateral lobes of the thyroid gland. Normal visualized pulmonary apices. Small bilateral supraclavicular lymph nodes. Normal visualized paranasal sinuses. Normal visualized cervical spine. CT/Soft Tissue Neck WITH Contrast IMPRESSION: Multiple small cervical lymph nodes as described. Electronically Signed: Charles Briceno MD at 13:34 EDT ,
[2022-01-04] MEDS: cycloBENZAPRine HCl 10 MG Tablet PO (13:00)
[2022-01-04] MEDS: Ketorolac 15 MG/ML Vial IV (13:00)
[2022-01-04 13:06] LABS: Absolute Neutrophil Count 2.1 X10^3/uL (2.0-7.7); Basophil# 0.04 X10^3/uL; Basophil% 1.1 % (0-1); Eosinophil# 0.15 X10^3/uL; Eosinophils% 4.2 % (0-5); Hemoglobin 13.5 g/dL (12.0-15.0); Mean Corp Hgb Conc 34.6 g/dL (32-36); Mean Corpuscular Hgb 29.5 pg (27.0-32.0); Mean Corpuscular Volume 85.2 fL (81-99); Mean Platelet Vol. 9.6 fl (6.2-12.0); Monocyte# 0.45 X10^3/uL; Monocyte% 12.5 % (0-10); NRBC Flagged by Analyzer 0 % (0-5); Neutrophil # 2.05 X10^3/uL (2.7-7.7); Neutrophil % 56.9 % (47-70); Platelet Count 229 K/mm3 (150-450); RBC Distribution Width CV 12.2 % (11.6-14.6); RBC Distribution Width SD 37.3 fl (35.1-43.9); Red Blood Count 4.58 M/mm3 (4.2-5.4); White Blood Count 3.6 K/mm3 (4.4-11.0)
[2022-01-04 13:35] LABS: Anion Gap 6 (5-15); BUN 10 mg/dL (7-18); BUN/Creat Ratio 13.1 RATIO (10-20); Calcium,Total 8.9 mg/dL (8.5-10.1); Chloride 109 mmol/L (98-107); Creatinine, Serum 0.77 mg/dL (0.55-1.02); EST Glomerular Filtration Rate 85 mL/min (>60); Est Glom Filt Rate - Afr Amer 103 mL/min (>60); Glucose 83 mg/dL (74-106); Potassium 3.6 mmol/L (3.5-5.1); Sodium Level 141 mmol/L (136-145)
--- NOTE | 2022-01-04 14:45 | EDS_ITS ---
HPI History of Present Illness Chief Complaint: Other, Pain/Inj Informant: patient Narrative Narrative: Patient is a 46-year-old female presenting with bilateral neck pain, bumps in her neck and left-sided headache. She denies any constitutional symptoms including fever, chills, rash, nausea, vomiting, photophobia, fever, night sweats or weight change. She notes that over the weekend she was camping in the backyard with her grandson and was sleeping on the ground. In addition she notes that they currently have a flea infestation at their house as they have 6 dogs. Patient started taking ibuprofen and Tylenol with last dose at 7 AM with no relief of her symptoms. She came in for further evaluation. [facility] Medical History Anemia Asthma History of edema Microcytic anemia Migraines Non-smoker Simple endometrial hyperplasia without atypia Status post hysteroscopy (~11/11/20) Wears glasses Home Medications ascorbic acid (vitamin C) 250 mg tablet 250 mg PO DAILY supplement 09/26/20 [History Last Taken 02/28/21 09:00] cyanocobalamin (vitamin B-12) 1,000 mcg tablet (Vitamin B-12) 1,000 mcg PO DAILY supplement 09/26/20 [History Last Taken 02/28/21 09:00] cephalexin 500 mg capsule 500 mg PO Q8H #21 caps 01/04/22 [Rx Last Taken Unknown] cyclobenzaprine 10 mg tablet 10 mg PO TID PRN muscle spasm #20 tabs 01/04/22 [Rx Last Taken Unknown] ibuprofen 600 mg tablet 600 mg PO Q6H PRN pain #20 tabs 01/04/22 [Rx Last Taken Unknown] Allergy/AdvReac Type Severity Reaction Status Date / Time Penicillins Allergy Rash Verified 01/04/22 12:04 Surgical History H/O bilateral salpingectomy H/O dilation and curettage [facility] Social History Smoking Status: Never smoker alcohol intake: never substance use type: does not use caffeine: Yes seatbelt use: always do you feel safe at home: Yes additional social history: - Cole RODRIGUEZ ED Constitutional Constitutional ED: Denies chills or fever(s) Eyes Eyes: Denies blurry vision or change in vision ENT ENT ED: Denies rhinorrhea or sore throat Cardiovascular Cardiovascular: Denies chest pain or palpitations Respiratory/Chest Respiratory/Chest: Denies cough or dyspnea Gastrointestinal Gastrointestinal: Denies abdominal pain, nausea or vomiting Musculoskeletal Musculoskeletal: Reports neck pain; Denies arthralgias or myalgias Integumentary Denies rash Neurologic Neurologic: Reports headache(s); Denies paresthesias Hematologic/Lymphatic Hematologic/Lymphatic: Reports as per HPI EXAM Physical Exam Const Vital Signs: 01/04/22 12:05 Temperature 98.1 F Temperature Source Temporal Pulse Rate 65 Respiratory Rate 17 Blood Pressure 147/88 H Blood Pressure Mean 107 Pulse Ox 99 Oxygen Delivery Method Room Air Positive well nourished and well developed General Appearance ED: well developed and NAD HEENT Reports TM's clear and moist mucous membranes Tympanic Membrane ED: Yes TM's clear Eyes PERRL and EOMs intact bilaterally Neck supple Neck Narrative: Tender shotty bilateral anterior cervical chain lymphadenopathy. There are small firm nodes that are mobile. No nuchal rigidity. Normal passive range of motion of the neck. No overlying erythema or associated rash. Chest Wall inspection of chest normal and palpation of chest normal Resp normal respiratory effort and clear to auscultation bilaterally Cardio regular rate, regular rhythm and no murmurs GI normal to inspection, nondistended, normoactive bowel sounds Neuro oriented x3 and CN's II-XII intact bilaterally Psych mental status grossly normal Skin no wounds and skin turgor normal MDM MDM MDM Narrative Medical decision making narrative: Patient is evaluated for bilateral neck pain with associated headache. Vital signs are normal. She does not have nuchal rigidity and her neck pain is lateral. I do not think this is meningitis. Lab work shows leukopenia with white blood cell count of 3.6 with a mild monocyte predominance of 12.5 percent and basophils 1.5%. BMP unremarkable. CT soft tissue neck shows multiple small cervical lymph nodes felt to be reactive. No obvious malignancy is found. Patient is treated with Flexeril and Toradol in the ER with improvement of her headache and symptoms. Should be discharged home with a prescription for these medications as well as a course of [id number] Keflex in case this is a bacterial lymphadenitis. I suspect more likely this is viral. Patient is given return precautions. She verbalizes agreement understand this plan. Discharged home in stable and improved condition. Lab Data Attestation: I reviewed the patient's lab results. Labs: Laboratory Results - last 24 hr 01/04/22 01/04/22 12:34 12:34 WBC 3.6 L RBC 4.58 Hgb 13.5 Hct 39.0 MCV 85.2 MCH 29.5 MCHC 34.6 RDW Std Deviation 37.3 RDW Coeff of Jaclyn 12.2 Plt Count 229 MPV 9.6 Immature Gran % (Auto) 0.300 Neut % (Auto) 56.9 Lymph % (Auto) 25.0 [place] % (Auto) 12.5 H Eos % (Auto) 4.2 Baso % (Auto) 1.1 H Absolute Neuts (auto) 2.1 Absolute Lymphs (auto) 0.90 Nucleated RBC % 0 Sodium 141 Potassium 3.6 Chloride 109 H Carbon Dioxide 26.0 Anion Gap 6 BUN 10 Creatinine 0.77 Estim Creat Clear Calc 80.40 Est GFR (MDRD) Af Amer 103 Est GFR (MDRD) Non-Af 85 BUN/Creatinine Ratio 13.1 Glucose 83 Calcium 8.9 Radiography Diagnostic Testing: Clinical Impression(s) from Imaging Studies Soft Tissue Neck CT 01/04/22 12:42 IMPRESSION: Multiple small cervical lymph nodes as described. Electronically Signed: Charles Briceno MD at 13:34 EDT , Discharge Plan Triage Chief Complaint: Other, Pain/Inj ED Provider: Melisa Hardin Dx/Rx/DC Orders Clinical Impression: Reactive cervical lymphadenopathy, Headache, Acute neck pain Instructions: Lymphadenopathy, ED Headache, Tension Prescriptions: New ibuprofen 600 mg tablet 600 mg PO Q6H PRN (Reason: pain) Qty: 20 0RF cyclobenzaprine 10 mg tablet 10 mg PO TID PRN (Reason: muscle spasm) Qty: 20 0RF cephalexin 500 mg capsule 500 mg PO Q8H Qty: 21 0RF No Action cyanocobalamin (vitamin B-12) [Vitamin B-12] 1,000 mcg tablet 1,000 mcg PO DAILY Label Comments: Take 1 tablet by mouth once daily. ascorbic acid (vitamin C) 250 mg tablet 250 mg PO DAILY Label Comments: Take 1 tablet by mouth once daily. Primary Care Provider: ANKUSH DODGE Referrals: ANKUSH DODGE NP-C [Primary Care Provider] - Activity Restrictions/Additional Instructions: You been given a prescription for antibiotics. Please wait 24 to 48 hours. If you are not feeling better or you develop a fever start taking antibiotics. If you start to improve you do not need to take the antibiotics nd can throw away the prescription. Disposition Disposition: Home, Self Care Discharge Date/Time: 01/04/22 15:30
== END 2022-01-04 15:30 | disposition home or self-care (01) ==
PROVIDERS: Emergency Provider Emergency Medicine; PCP Nurse Practitioner; Visit Provider Emergency Medicine
DX: R59.0 Localized enlarged lymph nodes (principal); D72.819 Decreased white blood cell count, unspecified; M54.2 Cervicalgia; R51.9 Headache, unspecified; J45.909 Unspecified asthma, uncomplicated
CPT/HCPCS: 70491; 80048; 85025; 87811; 96374; 99283; Q9967; A4216

== ENCOUNTER → 2022-01-20 | Outpatient (CLI) | payer MEDICAID, SELFPAY ==
--- NOTE | 2022-01-20 18:23 | US_ITS ---
STUDY: ULTRASOUND OF THE FEMALE PELVIS - LIMITED REASON FOR EXAM: Female, 46 years old ovarian cyst TECHNIQUE: Transabdominal and Transvaginal TECHNICAL QUALITY: Adequate. COMPARISON: 10/20/2015 FINDINGS: Status post hysterectomy.. The right ovary measures 4.6 x 2.8 x 2.8 cm. 3 cm dominant follicle the right ovary. There is no visualized right adnexal mass or complex lesion. There is normal arterial and normal venous vascularity. The left ovary measures 6.8 x 5.3 x 4.5 cm. 6 cm oval anechoic mass with increased transmission consistent with a physiologic cyst, par ovarian cyst, or cystadenoma. Follow-up ultrasound is recommended in one year. There is no visualized left adnexal mass or complex lesion. There is normal arterial and normal venous vascularity. There is no fluid in the cul-de-sac. US/Transvaginal Non- IMPRESSION: 6 cm left ovarian physiologic cyst, par ovarian cyst, or cystadenoma. Follow-up ultrasound is recommended in one year. Electronically Signed: Pravin Rogel MD at 22:28 EDT ,
--- NOTE | 2022-01-20 18:23 | US_ITS ---
STUDY: ULTRASOUND OF THE FEMALE PELVIS - LIMITED REASON FOR EXAM: Female, 46 years old ovarian cyst TECHNIQUE: Transabdominal and Transvaginal TECHNICAL QUALITY: Adequate. COMPARISON: 10/20/2015 FINDINGS: Status post hysterectomy.. The right ovary measures 4.6 x 2.8 x 2.8 cm. 3 cm dominant follicle the right ovary. There is no visualized right adnexal mass or complex lesion. There is normal arterial and normal venous vascularity. The left ovary measures 6.8 x 5.3 x 4.5 cm. 6 cm oval anechoic mass with increased transmission consistent with a physiologic cyst, par ovarian cyst, or cystadenoma. Follow-up ultrasound is recommended in one year. There is no visualized left adnexal mass or complex lesion. There is normal arterial and normal venous vascularity. There is no fluid in the cul-de-sac. US/Pelvic (Non ) IMPRESSION: 6 cm left ovarian physiologic cyst, par ovarian cyst, or cystadenoma. Follow-up ultrasound is recommended in one year. Electronically Signed: Pravin Rogel MD at 22:28 EDT ,
== END | disposition home or self-care (01) ==
LOC: US 18:01
PROVIDERS: PCP Nurse Practitioner; Visit Provider Obstetrics & Gynecology
DX: N83.209 Unspecified ovarian cyst, unspecified side (principal)
CPT/HCPCS: 76830; 76856

== ENCOUNTER 2022-01-31 14:41 | Day surgery (SDC) | payer MEDICAID, SELFPAY ==
[2022-01-31] VITALS (7 sets, daily range): BP systolic 116–137; BP diastolic 70–88; PULSE 69–78; RESP 14–18; TEMP 36.6–37.1; O2SAT 98–99; BMI 26.5
--- NOTE | 2022-01-31 06:27 | HP.PCM_ITS ---
History and Physical HPI lap. ovarian cystectomy possible ooph Details: KEVIN CRAWFORD is a 46 year old who presents for preop visit having increased pain intermittently.? left 6 cm complex cyst.? Female Reproductive History Menopausal Symptoms:?Yes hot flashes and Yes night sweats History ? ? ? 4 ? Elective abortions ? Hx Para ? ? ? 4 ? Spontaneous abortions ? Hx # Term Pregnancies ? Ectopic pregnancies ? Hx # Pregnancies ? Multiple births ? # of living children ? Past Pregnancies Del. Date? Name? GA/Weeks? Outcome?A Route? Bth Weight? Infant Gen? Labor Lgth? Anesthesia? Del Locatn? Provider? FOB? Unknown Coral ? Unknown Nick ? Unknown Jasmeet ? Unknown Caleb ? ROS Const Constitutional:?Reports night sweats; Denies fatigue, weight gain or weight loss ENT ENT:?Reports system reviewed and no additional complaints, except as documented Cardio Card:?Denies chest pain Resp Resp:?Denies cough or dyspnea GI GI:?Reports as per HPI and abdominal pain; Denies constipation, nausea or vomiting :?Reports hot flashes; Denies nipple discharge, urinary frequency, urinary incontinence, urinary hesitancy, urinary urgency, vaginal discharge, vaginal dryness, vaginal odor or vaginal pruritus Musc Musc:?Denies arthralgias, back pain or muscle weakness Skin Skin/Breast:?Denies alopecia, change in hair, dry skin, breast mass, breast pain, breast skin changes or nipple discharge Neuro Neuro:?Reports system reviewed and no additional complaints, except as documented Psych Psych:?Reports system reviewed and no additional complaints, except as documented Endo Endo:?Denies cold intolerance, excessive sweating, heat intolerance or polydipsia Sixto/Lymph Hematologic/Lymphatic:?Denies easy bleeding, Denies easy bruising and Denies lymphadenopathy Exam Const General:?cooperative, healthy appearing, comfortable, no acute distress and well developed Orientation:?alert [facility] Head:?normal to inspection and normocephalic Ears:?hearing grossly normal bilaterally and external ears normal Nose:?external nose normal and nares normal Face and sinus:?normal facial exam Neck Neck:?normal visual inspection and no lymphadenopathy Thyroid:?thyroid normal Chest Chest palpation & inspection:?normal inspection of the chest Resp Effort & Inspection:?normal respiratory effort Auscultation:?clear to auscultation bilaterally Cardio Rate:?regular rate Rhythm:?regular rhythm Heart Sounds:?S1 normal and S2 normal GI Inspection:?normal to inspection and non-distended Palpation:?soft, no hepatosplenomegaly and tender (generalized) Musc Other: gross motor intact no deficits, full bilateral strength Skin General:?no rashes or lesions noted Neuro General:?patient alert, patient awake, moves all extremities and no focal motor deficits Motor:?muscle tone normal throughout Extrem General:?normal to inspection and no pedal edema Psych Appearance:?grossly normal Mental Status:?mental status grossly normal Affect:?normal affect Speech and Movement:?speech and movement normal Coding Level of Care Code No Charge Diagnoses History of total vaginal hysterectomy (TVH)? Z90.710 Ovarian cyst? N83.209 Assessment and Plan Assessment and Plan (1) History of total vaginal hysterectomy (TVH): ?Status:?Acute ?Comment: BS (2) Ovarian cyst: ?Status:?Acute ?Comment: pelvic us ordered Plan After discussing the patient's diagnosis and treatment plan options, patient wishes to proceed with surgical management.? I have discussed with the patient the risks, benefits, and alternatives of the procedure which include but are not limited to risks of anesthesia, bleeding, infection, possible damage to bowel, bladder, or surrounding vasculature which could lead to additional surgery to evaluate any complications.? Patient agrees to procedure and wishes to proceed.? ACOG/uptodate references given for additional information regarding procedure.? Output By User Office Procedures Add?Procedure ? Departure Packet: Portal Print Orders Generate Education/Forms/Letters Visit Summary Decline ? Education ? Forms ? Letters Generated for this Document ? Prescriptions Prescriptions Name Last Generated oxycodone-acetaminophen 5 mg-325 mg tablet?(Percocet)?1 TAB PO Q6H 28 tabs 0RF 7 days Jada Perez 01/30/22 16:14 (Transmitted) Incomplete Orders Incomplete Orders No Incomplete Orders Follow Up Scheduling?Grid Follow Up Patient Status Patient Status Departed Patient Status Comment Room 4 UPDATE- I have seen the patient and performed any clinically relevant updates to the history and physical exam. Jada Perez MD
--- NOTE | 2022-01-31 15:00 | OV_PTH ---
PATIENT: KEVIN CRAWFORD LOC: [facility] [place] U#:[id number] AGE/SX: 46/F ROOM: RE01/31/[address]: Dr. Jada Perez MD : 1975 BED: DIS: 01/31/2022 SPEC #: [id number] RECD: 02/01/22 08:27 STATUS: KENYON RENETTA #: [id number] LINDA: 01/31/22 15:[address]: Jada Perez DEPT: SURGICAL PATHOLOGY RECD BY: Braxton Patel ENTERED: 02/01/22 10:20 SP TYPE: OVARY OTHR DR: ANKUSH DODGE, RN DOCUMENTATION SPECIALIST-C Tissues: Left ovary Procedures: Surgery Specimen Level IV HEADER OPERATION: Laparoscopic ovarian cystectomy PRE-OP DIAGNOSIS: Increased pain intermittently and left 6 cm complex cyst TISSUE SUBMITTED: Left ovarian cyst MICROSCOPIC DIAGNOSIS Left ovarian cyst, cystectomy: Simple serous cystadenoma. SJ:deena 02/02/2022 MICROSCOPIC DESCRIPTION Slides are reviewed. GROSS DESCRIPTION Received in fixative is one container labeled with the patient's name and designated left ovarian cyst. The specimen consists of a collapsed cyst measuring 5 x 3.5 x 1 cm. The cyst wall is smooth. No cyst content is noted. No papillations are identified. The cyst wall measures 0.1 to 0.3 cm in thickness. Railroad Shop Inspector sections are submitted in two cassettes. / SJ:deena 02/01/2022 TC:1 CPT: 83756
[2022-01-31 15:21] LABS: Hematocrit 41.1 % (37-47); Mean Corp Hgb Conc 34.1 g/dL (32-36); Mean Corpuscular Hgb 29.4 pg (27.0-32.0); Mean Corpuscular Volume 86.2 fL (81-99); Mean Platelet Vol. 9.5 fl (6.2-12.0); Platelet Count 290 K/mm3 (150-450); RBC Distribution Width CV 12.4 % (11.6-14.6); RBC Distribution Width SD 39.4 fl (35.1-43.9); Red Blood Count 4.77 M/mm3 (4.2-5.4); White Blood Count 5.6 K/mm3 (4.4-11.0)
[2022-01-31 15:34] LABS: Partial Thromboplast Time 27.5 Seconds (24.1-36.2)
--- NOTE | 2022-01-31 15:36 | PCM.OPRPT ---
Problems Associated Problem List Diagnoses (1) History of total vaginal hysterectomy (TVH): (2) Ovarian cyst: (3) Bilateral ovarian cysts: Report of Operation Date of Procedure: 01/31/22 Pre-Operative Diagnosis: see problem list Post-Operative Diagnosis: same Surgery/Procedure Performed:: Laparoscopic left ovarian cystectomy right ovarian cystotomy lysis of adhesions Description of Surgical Findings:: Omental to vaginal cuff adhesions left ovarian fossa adhesions enlarged left ovarian cyst right simple ovarian cyst Surgeon: Jada Perez certified pediatric nurse practitioner: Robert Cullen Type of Anesthesia: General and Local Special Medications: none Specimen's removed: Left ovarian cyst Drains: none Estimated Blood Loss (mL): 50 Fluids Replaced: crystalloid Description of Procedure: Patient was taken in the operating room and was placed under general anesthesia was prepped and draped in normal sterile fashion in the dorsal lithotomy position. Bladder was drained of clear urine and SCDs were on preoperatively. Sponge stick placed in the vagina attention was then paid to the abdominal portion of the procedure and the umbilicus was elevated with towel clamps and injected with Marcaine and after a 5 mm incision was made and the Veress needle was entered into the abdomen confirmed to be intra-abdominal with a low opening pressure of less than 5 mmHg. Abdomen was insufflated with CO2 gas and a 5 mm optical trocar was placed under direct visualization. A right and left lower quadrant 5 mm ports were placed under direct visualization and then the left lower quadrant was changed to a 12 mm port. Scar tissue was noted and taken down with the LigaSure and bluntly without complication. The left ovary was noted to be significantly enlarged with a pathological cyst. The cyst began to be removed from the underlying ovarian tissue without complication and the normal ovarian tissue remained intact underneath without complication. The ovary appeared normal and the ovarian cyst was unruptured prior to removal through a bag. It was drained at the port site externally. The right ovary had a simple cyst which was incised and drained for clear fluid. Excellent hemostasis was noted. The fascial incision was closed using the Farhad Cox and an 0 Vicryl. Liver and upper abdomen were visualized notably within normal limits and no other gross abnormalities were seen in the abdomen. All instruments removed from the abdomen after gas was desufflated. Port sites were closed with 3-0 Monocryl Steri's and op sites were applied. All instruments removed from the vagina and patient was awoken and taken recovery in stable condition. Grafts/Implants Used: none Complications none Admit VTE Documentation VTE Present on Admission: No VTE Mechan Device Prophylaxis: SCD's Procedures Urinary/Genital [id number]: 37210 Laproscopic BS/O (ovarian cystectomy)
--- NOTE | 2022-01-31 15:37 | DCINST_ITS ---
Discharge Instructions Diet Discharge Diet: No restrictions Activity Discharge Activity: Return to Normal Activity, May Drive (when pain free) and May Shower May resume sexual activity in: 1 week Weight Bearing Status: Full weight bearing Lifting Restrictions: 30 lbs for 2 weeks Dressing / Incision Call your doctor if your incision/area has: Continuous Slow Oozing, Sudden Increased Bleeding, Increased Pain/ Swelling, Increased Redness and Foul Smelling Discharge Call your doctor if you observe: Fever of 101 or Higher, Using more than 1 pad per hour, Shortness of breath, Chest pain and Uncontrolled pain Suture Line Care: Avoid Pulling/Pushing and Avoid Pinching/Bending Remove Dressing in: 1 week (if present) Cleanse incision/area with: Soap & Water and Keep Dressing Clean & Dry Follow Up Care Please Follow Up With: Jada Perez MD When: Call to make an appointment with your doctor for a postop visit in 2 weeks Test Results: Test results from this visit will be discussed in further detail at your follow- up appointment, if applicable. Discharge Plan Admission Attending Provider: Jada Perez Primary Care Provider: ANKUSH DODGE Discharge Orders/Prescriptions Prescriptions: No Action oxycodone-acetaminophen [Percocet] 5-325 mg tablet 1 tab PO Q6H 7 Days Qty: 28 0RF cyanocobalamin (vitamin B-12) [Vitamin B-12] 1,000 mcg tablet 1,000 mcg PO DAILY Label Comments: Take 1 tablet by mouth once daily. ascorbic acid (vitamin C) 250 mg tablet 250 mg PO DAILY Label Comments: Take 1 tablet by mouth once daily. Referrals / Follow Up: ANKUSH DODGE NP-C [Primary Care Provider] - Disposition Disposition (needs filled in before D/C Order can be placed): Home, Self Care
[2022-01-31 15:43] LABS: AST(SGOT) 19 U/L (15-37); Alanine Aminotransfer ALT/SGPT 20 U/L (13-56); Albumin, Serum 3.4 g/dL (3.2-5.0); Alkaline Phosphatase 117 U/L (45-117); Bilirubin, Direct 0.11 mg/dL (0.00-0.30); Globulin 3.7 g/dL (2.2-4.2); Protein, Total 7.1 g/dL (6.4-8.2)
== END 2022-01-31 18:17 | disposition home or self-care (01) ==
LOC: SDC 14:43 → AC 14:44
PROVIDERS: Anesthesiology; PCP Nurse Practitioner; Referring Provider Obstetrics & Gynecology; Visit Provider Obstetrics & Gynecology
PROC: (CPT 58720; principal; 2022-01-31 14:45)
DX: D27.1 Benign neoplasm of left ovary (principal); N83.201 Unspecified ovarian cyst, right side; J45.909 Unspecified asthma, uncomplicated; Z90.710 Acquired absence of both cervix and uterus
CPT/HCPCS: 58662; 00840; 80076; 85027; 85610; 85730; 86850; 86900; 86901; 88305; J7120; J2405

== ENCOUNTER → 2022-05-30 | Outpatient (CLI) | payer MEDICAID, SELFPAY ==
--- NOTE | 2022-05-30 15:53 | US_ITS ---
EXAM: US PELVIS TRANSABDOMINAL AND TRANSVAGINAL, COMPLETE CLINICAL INDICATION: PELVIC PAIn TECHNIQUE: Transabdominal and transvaginal pelvic ultrasound was performed with grayscale and color Doppler imaging. Transvaginal imaging was used for better evaluation of the endometrium and adnexa. This report was created using [employer] report generation technology. COMPARISON: 01/20/2022 FINDINGS: UTERUS/CERVIX: The uterus is surgically absent. Anteverted. There is no uterine mass. Normal endometrial stripe thickness. RIGHT OVARY: The right ovary measures 2.5 x 1.1 x 2.6 cm. Blood flow is present in the right ovary. LEFT OVARY: Left ovary measures 3.9 x 2.1 x 3.3 cm. There is a septated cyst that measures 2.2 x 1.6 x 2.9 cm in the left ovary. Blood flow is present in the left ovary. FREE FLUID: None. BLADDER: The bladder measures 8.1 x 4.3 x 7.0 cm for a volume of 125 mL. US/Pelvic (Non ) IMPRESSION: Septated left ovarian cyst. No other abnormalities are identified. Status post hysterectomy. Electronically Signed: Danny Aldrich MD at 21:55 EST ,
--- NOTE | 2022-05-30 15:53 | US_ITS ---
EXAM: US PELVIS TRANSABDOMINAL AND TRANSVAGINAL, COMPLETE CLINICAL INDICATION: PELVIC PAIn TECHNIQUE: Transabdominal and transvaginal pelvic ultrasound was performed with grayscale and color Doppler imaging. Transvaginal imaging was used for better evaluation of the endometrium and adnexa. This report was created using [employer] report generation technology. COMPARISON: 01/20/2022 FINDINGS: UTERUS/CERVIX: The uterus is surgically absent. Anteverted. There is no uterine mass. Normal endometrial stripe thickness. RIGHT OVARY: The right ovary measures 2.5 x 1.1 x 2.6 cm. Blood flow is present in the right ovary. LEFT OVARY: Left ovary measures 3.9 x 2.1 x 3.3 cm. There is a septated cyst that measures 2.2 x 1.6 x 2.9 cm in the left ovary. Blood flow is present in the left ovary. FREE FLUID: None. BLADDER: The bladder measures 8.1 x 4.3 x 7.0 cm for a volume of 125 mL. US/Transvaginal Non- IMPRESSION: Septated left ovarian cyst. No other abnormalities are identified. Status post hysterectomy. Electronically Signed: Danny Aldrich MD at 21:55 EST ,
== END | disposition home or self-care (01) ==
LOC: US 15:52
PROVIDERS: PCP Nurse Practitioner; Referring Provider Obstetrics & Gynecology; Visit Provider Obstetrics & Gynecology
DX: R10.2 Pelvic and perineal pain (principal)
CPT/HCPCS: 76830; 76856

== ENCOUNTER → 2022-07-13 | Outpatient (CLI) | payer MEDICAID, SELFPAY ==
--- NOTE | 2022-07-13 14:15 | US_ITS ---
STUDY: ULTRASOUND OF THE FEMALE PELVIS - COMPLETE REASON FOR EXAM: Female, 47 years old. Pelvic pain LMP: Patient is status post hysterectomy. TECHNIQUE: Transabdominal and Transvaginal TECHNICAL QUALITY: Adequate. COMPARISON: None. FINDINGS: The patient is status post hysterectomy. The right ovary is visualized. The right ovary measures 3.2 cm x 1.8 cm x 1.8 cm. Follicles are seen within the ovary. There is no visualized right adnexal mass or complex lesion. There is normal arterial and normal venous vascularity. The left ovary is visualized. The left ovary measures 2.8 cm x 1.7 cm x 1.9 cm. Follicles are seen within the ovary. There is no visualized left adnexal mass or complex lesion. There is normal arterial and normal venous vascularity. There is no fluid in the cul-de-sac. The pre void volume of the bladder was 571 ml. US/Transvaginal Non- IMPRESSION: Status post hysterectomy. Follicles are seen in both ovaries. Electronically Signed: Charles Briceno MD at 12:41 EST ,
--- NOTE | 2022-07-13 14:15 | US_ITS ---
STUDY: ULTRASOUND OF THE FEMALE PELVIS - COMPLETE REASON FOR EXAM: Female, 47 years old. Pelvic pain LMP: Patient is status post hysterectomy. TECHNIQUE: Transabdominal and Transvaginal TECHNICAL QUALITY: Adequate. COMPARISON: None. FINDINGS: The patient is status post hysterectomy. The right ovary is visualized. The right ovary measures 3.2 cm x 1.8 cm x 1.8 cm. Follicles are seen within the ovary. There is no visualized right adnexal mass or complex lesion. There is normal arterial and normal venous vascularity. The left ovary is visualized. The left ovary measures 2.8 cm x 1.7 cm x 1.9 cm. Follicles are seen within the ovary. There is no visualized left adnexal mass or complex lesion. There is normal arterial and normal venous vascularity. There is no fluid in the cul-de-sac. The pre void volume of the bladder was 571 ml. US/Pelvic (Non ) IMPRESSION: Status post hysterectomy. Follicles are seen in both ovaries. Electronically Signed: Charles Briceno MD at 12:41 EST ,
== END | disposition home or self-care (01) ==
LOC: US 14:05
PROVIDERS: PCP Nurse Practitioner; Visit Provider Obstetrics & Gynecology
DX: R10.2 Pelvic and perineal pain (principal)
CPT/HCPCS: 76830; 76856

== ENCOUNTER → 2023-02-19 | Outpatient (CLI) | payer MEDICAID, SELFPAY | END | disposition home or self-care (01) | LOC: LABSPEC 11:37 | PROVIDERS: PCP Nurse Practitioner; Referring Provider Obstetrics & Gynecology; Visit Provider Obstetrics & Gynecology | DX: R10.2 Pelvic and perineal pain (principal) | CPT/HCPCS: 87086; 87088 ==

== ENCOUNTER → 2023-02-23 | Outpatient (CLI) | payer MEDICAID, SELFPAY ==
--- NOTE | 2023-02-23 10:42 | US_ITS ---
INDICATION: Pelvic pain EXAMINATION: Ultrasound US Pelvis Non OB Complete With Transvaginal Imaging TECHNIQUE: Transabdominal and transvaginal pelvic ultrasound was performed. Grayscale, spectral waveform, and color flow Doppler evaluation of the adnexa. COMPARISON: Prior study dated: 07/13/2022. FINDINGS: UTERUS: Status post hysterectomy. RIGHT OVARY: 3 x 1.7 x 1.7 cm. Non-enlarged, normal echogenicity. There is normal arterial inflow and venous outflow present in the right ovary. LEFT OVARY: 3 x 1.6 x 2 cm. 2.1 cm complex hemorrhagic cyst in the left ovary. There is normal arterial inflow and venous outflow present in the left ovary. FREE FLUID: None. US/Pelvic w/ Transvaginal IMPRESSION: 1. Status post hysterectomy. 2. Small hemorrhagic cyst in the left ovary. Electronically Signed: Levi Little MD at 13:05 EDT ,
== END | disposition home or self-care (01) ==
LOC: OPUS 10:41
PROVIDERS: PCP Nurse Practitioner; Referring Provider Obstetrics & Gynecology; Visit Provider Obstetrics & Gynecology
DX: R10.2 Pelvic and perineal pain (principal)
CPT/HCPCS: 76830; 76856

== ENCOUNTER → 2023-04-04 | Outpatient (CLI) | payer MEDICAID, SELFPAY ==
--- NOTE | 2023-04-04 15:00 | US_ITS ---
STUDY: ULTRASOUND OF THE FEMALE PELVIS - COMPLETE REASON FOR EXAM: Female, 47 years old. pelvic pain-LLQ LMP: Unknown. TECHNIQUE: Transabdominal and Transvaginal TECHNICAL QUALITY: Adequate. COMPARISON: None. FINDINGS: The uterus is not visualized consistent with known history of prior hysterectomy. The right ovary is visualized. The right ovary measures 2.9 x 2.0 x 1.8 cm. Within the right ovary there is a round anechoic structure measuring 1.9 x 1.6 x 1.5 cm consistent with a simple cyst. There is no visualized right adnexal mass or complex lesion. There is normal arterial and normal venous vascularity. The left ovary is visualized. The left ovary measures 2.1 x 1.4 x 1.3 cm. Within the left ovary there is a round anechoic structure measuring 0.8 x 0.7 x 0.9 cm. There is no visualized left adnexal mass or complex lesion. There is normal arterial and normal venous vascularity. There is no fluid in the cul-de-sac. US/Pelvic w/ Transvaginal IMPRESSION: Status post hysterectomy. Bilateral ovarian simple cysts, remainder of the pelvic ultrasound unremarkable. Electronically Signed: Moriah Michaud MD at 21:00 EST ,
== END | disposition home or self-care (01) ==
LOC: US 14:59
PROVIDERS: PCP Nurse Practitioner; Referring Provider Obstetrics & Gynecology; Visit Provider Obstetrics & Gynecology
DX: N83.201 Unspecified ovarian cyst, right side (principal); N83.202 Unspecified ovarian cyst, left side; Z90.710 Acquired absence of both cervix and uterus
CPT/HCPCS: 76830; 76856

== ENCOUNTER 2023-11-14 16:47 | Emergency (ER) | payer MEDICAID, SELFPAY ==
[2023-11-14 16:48] VITALS: PULSE 106; RESP 18; TEMP 36.6; O2SAT 99
[2023-11-14 17:34] VITALS: BMI 29.7
[2023-11-14 17:48] VITALS: BP 145/102; PULSE 88; RESP 16; O2SAT 99
[2023-11-14 18:00] VITALS: PULSE 99; RESP 18; O2SAT 99
--- NOTE | 2023-11-14 18:03 | EX.ED.VISEXT ---
HPI History of Present Illness HPI Narrative: Healthy 48-year-old female who her dog is going to fight she tried to break it up and got bit multiple times on both hands. There is a laceration on the dorsum of the right hand proximal to the thumb and the need repaired. Unknown last tetanus will need to be updated. She is allergic to penicillin. This occurred about 1-1/2 hours ago. Chief Complaint: Bite Informant: patient and spouse/S.O. Occured/Mechanism Mechanism/Context: Yes injury Comment: Dog bite bilateral hands. Onset/Context/Timing Onset: Today and Hours Context: Sudden Onset Timing: Continuous Quality of Pain: Sharp and Aching Current Severity: Moderate Maximum Severity: Moderate Associated Symptoms Associated Symptoms: Negative for Parasthesia, Weakness or Loss of Funtion Narrative Narrative: 28-year-old female with dog bite to both hands. Tetanus Immunization: Unknown Prior similar symptoms: No Recent Illness/Hospitalization: No ROS ROS ED ROS Narrative Denies recent illness. Review of Systems ROS Unobtainable: Denies due to encephalopathy Constitutional Constitutional ED: Denies chills or fever(s) Eyes Eyes: Denies blurry vision ENT ENT ED: Denies ear pain Cardiovascular Cardiovascular: Denies chest pain Respiratory/Chest Respiratory/Chest: Denies cough or dyspnea Gastrointestinal Gastrointestinal: Denies abdominal pain Genitourinary Genitourinary ED: Denies dysuria or hematuria Musculoskeletal Musculoskeletal: Denies arthralgias Integumentary Denies abscess Neurologic Neurologic: Denies headache(s) Psychiatric Psychiatric: Denies anxiety or depression Endocrine Endocrinology: Denies polydipsia or polyphagia Hematologic/Lymphatic Hematologic/Lymphatic: Denies easy bleeding, easy bruising or lymphadenopathy Allergic/Immunologic Allergic/Immunologic ED: Denies mouth swelling, tongue swelling or urticaria [facility] Medical History Bilateral ovarian cysts Easy bruising Wears glasses Non-smoker History of edema Simple endometrial hyperplasia without atypia Status post hysteroscopy (~11/11/20) Anemia Asthma Migraines Microcytic anemia Home Medications ?Medication ?Instructions ?Recorded ?Last Taken ?Type ascorbic acid (vitamin C) 250 mg 250 mg PO DAILY supplement 09/26/20 02/28/21 09:00 History tablet cyanocobalamin (vitamin B-12) 1,000 mcg PO DAILY supplement 09/26/20 02/28/21 09:00 History 1,000 mcg tablet (Vitamin B-12) cyclobenzaprine 10 mg tablet 10 mg PO TID PRN muscle spasm #30 06/01/22 Unknown Rx tabs ibuprofen 800 mg tablet 800 mg PO Q8H 7 days #21 tabs 02/19/23 Unknown Rx clindamycin HCl 150 mg capsule 150 mg PO Q6H 7 days #28 caps 11/14/23 Unknown Rx Allergy/AdvReac Type Severity Reaction Status Date / Time Penicillins Allergy Rash Verified 11/14/23 16:51 Surgical History History of total vaginal hysterectomy (TVH) H/O bilateral salpingectomy History of total vaginal hysterectomy (TVH) (~03/01/21) H/O dilation and curettage S/P tubal ligation Social History Smoking Status: Never smoker alcohol intake: never substance use type: does not use caffeine: Yes seatbelt use: always do you feel safe at home: Yes additional social history: [facility] EXAM Physical Exam Narrative Exam Narrative: 48-year-old female no acute distress vital signs stable afebrile. HEENT exam unremarkable. Lungs clear. Heart regular rhythm rate about 100 no murmur. Chest wall ribs nontender. Abdomen soft nontender. Back nontender. Moving all 4 extremities. Neurovascular intact. Multiple small dog bite lacerations to both hands palmar and dorsum. There is a bounding 3 cm laceration proximal to her MTP of the right thumb. She is able to do flexion extension all digits of both hands. There is mild swelling. She is in sensation and cap refill. No signs of foreign body or infection. No cellulitis. Mild swelling. She also has dog bites on both wrists. No hematoma. No pulsatile bleeding. Neurologically she is awake and alert no focal motor deficits. Const Vital Signs: 11/14/23 16:48 11/14/23 17:48 11/14/23 18:00 Temperature 98 F Temperature Source Temporal Pulse Rate 106 H 88 99 Respiratory Rate 18 16 18 Blood Pressure 145/102 H Blood Pressure Mean 116 Pulse Ox 99 99 99 Oxygen Delivery Method Room Air Room Air Positive well nourished and well developed; Negative for obese, cachectic, contractures or unkempt General Appearance ED: well developed and NAD; Negative for unkempt, cachectic or contractures Nutritional Appearance: Negative for cachectic or obese HEENT Reports moist mucous membranes normocephalic and atraumatic; Negative for trauma or tenderness Eyes PERRL and EOMs intact bilaterally General Eye ED: Negative for other Neck full ROM and no lymphadenopathy General: Negative for tenderness Resp normal respiratory effort and clear to auscultation bilaterally Effort and Inspection: Negative for other Auscultation: Negative for rales, rhonchi or wheezes Cardio regular rate, regular rhythm, S1 normal heart sound, S2 normal heart sound and no murmurs Jugular Venous Distention: Negative for other Rate: Negative for bradycardia or tachycardic Rhythm: Negative for abnormal rhythm GI non-tender, non-distended and no masses Inspection: Negative for abdominal distention Auscultation: normoactive bowel sounds Palpation: soft; Negative for tender, guarding or rebound tenderness present Back/Spine no CVA tenderness Extremity full ROM; Negative for normal to inspection Extremity Narrative: Multiple dog bites bilateral hands and wrist. Neurovascular intact. Normal range of motion. Laceration proximal to the right thumb along the carpal bone of the right thumb involving the skin and subcu tissue. Does not appear to involve bone, joint, muscle or tendon. She has full flexion extension of the left thumb and can extend against resistance. Hands are both neurovascularly intact. No infection. Mild swelling. General Extremety ED: Yes tenderness Neuro oriented x3 and CN's II-XII intact bilaterally Sensorium / Orientation: alert, oriented to person, oriented to place and oriented to time; Negative for orientation impaired, confused, lethargic or stuporous Motor Exam: strength 5/5 throughout Psych mental status grossly normal and thought process normal Appearance: Negative for unkempt Attitude: No agitated Skin Skin Narrative: Multiple dog bites to both wrists and hands. Lesions: no lesions Rashes: no rashes Trauma: laceration; Negative for abrasion MDM MDM MDM Narrative Medical decision making narrative: 48-year-old dog bites. Tetanus will be updated. She is allergic to penicillin with a number of dog bites and whether located to be placed on clindamycin 4 times daily for 7 days. First dose given in the ER. The laceration on the dorsum of the right hand proximal thumb will be cleaned, local anesthetized irrigated and explored and sutured closed. The rest will heal secondarily. Ice and elevate. Tylenol Motrin. Return if any signs of infection. Follow-up with primary care provider as needed. History & Record Review Discussion w/independent historian: Patient and Significant other Procedures Lacerations Right hand laceration dorsum proximal to the M TP of the right thumb. Approximately 3 cm: Length: 1 in Depth: Sub Q Shape: Linear Prep: Shure-Clens Laceration repair: Lidocaine, Local, Skin sutures and Wound explored Number of Sutures/[place]: 5 Suture Information: Ethilon, Simple and 4-0 Comment: Right hand laceration from a dog bite. Approximately 3 and half centimeters in length. Local anesthetized lidocaine. Cleaned with Shur-Clens. Washed and irrigated with saline. Explored. Involve the skin and subcu tissue. I can see muscle. I do not see any tendon laceration nor bone or joint involvement. No foreign body. Closed using six 4-0 Ethilon simple interrupted sutures. Proper hemostasis and wound closure obtained. Patient was instructed on wound care. Discharge Plan Triage Chief Complaint: Bite ED Provider: Robert Godinez Dx/Rx/DC Orders Clinical Impression: Dog bite Instructions: ED Dog Bite Prescriptions: New clindamycin HCl 150 mg capsule 150 mg PO Q6H 7 Days Qty: 28 0RF No Action ibuprofen 800 mg tablet 800 mg PO Q8H 7 Days Qty: 21 2RF cyanocobalamin (vitamin B-12) [Vitamin B-12] 1,000 mcg tablet 1,000 mcg PO DAILY Patient Comments: Take 1 tablet by mouth once daily. ascorbic acid (vitamin C) 250 mg tablet 250 mg PO DAILY Patient Comments: Take 1 tablet by mouth once daily. cyclobenzaprine 10 mg tablet 10 mg PO TID PRN (Reason: muscle spasm) Qty: 30 2RF Primary Care Provider: ANKUSH DODGE Referrals: ANKUSH DODGE NP-C [Primary Care Provider] - 10 Day for suture removal Activity Restrictions/Additional Instructions: Very important ice and elevate your hand to decrease pain and swelling for the next 3 days. Motrin and Tylenol for pain. Make sure you are taking the antibiotic 4 times a day till gone. We went to do everything possible to try to prevent infection. Watch for any signs of infection such as pus, significant swelling, red streaks or fever if seen return. Stitches out in 10 days. Print Language: And[place]ran Disposition Disposition: Home, Self Care
[2023-11-14] MEDS: Clindamycin HCl 150 MG Capsule PO (18:05)
[2023-11-14] MEDS: Lidocaine 1% (20 ml mdv) 20 ML Vial 10 ML INFILT (18:05)
[2023-11-14] MEDS: Diphth,Pertuss(Acell),Tet Vac 0.5 ML Vial IM (18:06)
[2023-11-14] MEDS: Ibuprofen 400 MG Tablet 800 MG PO (18:31)
[2023-11-14 18:37] VITALS: BP 145/102; PULSE 78; RESP 16; TEMP 36.6; O2SAT 97
== END 2023-11-14 18:39 | disposition home or self-care (01) ==
PROVIDERS: Emergency Provider Emergency Medicine; PCP Nurse Practitioner; Visit Provider Emergency Medicine
DX: S61.011A Laceration without foreign body of right thumb without damage to nail, initial encounter (principal); S61.451A Open bite of right hand, initial encounter; S61.452A Open bite of left hand, initial encounter; S61.552A Open bite of left wrist, initial encounter; S61.551A Open bite of right wrist, initial encounter; W54.0XXA Bitten by dog, initial encounter; Z23 Encounter for immunization; Z79.899 Other long term (current) drug therapy; Z88.0 Allergy status to penicillin
CPT/HCPCS: 12002; 90715; 99285

== ENCOUNTER 2023-11-25 12:52 | Emergency (ER) | payer MEDICAID, SELFPAY ==
[2023-11-25 12:53] VITALS: BP 147/89; PULSE 64; RESP 18; TEMP 35.9; O2SAT 98; BMI 28.8
--- NOTE | 2023-11-25 13:18 | EDS_ITS ---
HPI <LISA Godfrey - Last Filed: 11/25/23 14:04> History of Present Illness Chief Complaint: Bite Narrative Narrative: Patient a 48-year-old female with history anxiety, depression who presents to the emergency department for reevaluation of a dog bite to her right hand. Patient was seen here in November 13 with multiple wounds of the right hand. Patient did have a laceration to the dorsum of the hand just midline to the thumb. Patient had 6 sutures. Patient has worsening swelling to the area, worsening pain to her fingers, and is here for evaluation. She is here to get the sutures removed as well as evaluation of her hand. Patient was on clindamycin 4 times a day for a week. Denies any fever or chills. PFSH <LISA Godfrey - Last Filed: 11/25/23 14:04> REPLACED BY [facility] Medical History Bilateral ovarian cysts Easy bruising Wears glasses Non-smoker History of edema Simple endometrial hyperplasia without atypia Status post hysteroscopy (~11/11/20) Anemia Asthma Migraines Microcytic anemia Home Medications ?Medication ?Instructions ?Recorded ?Last Taken ?Type ascorbic acid (vitamin C) 250 mg 250 mg PO DAILY supplement 09/26/20 02/28/21 09:00 History tablet cyanocobalamin (vitamin B-12) 1,000 mcg PO DAILY supplement 09/26/20 02/28/21 09:00 History 1,000 mcg tablet (Vitamin B-12) cyclobenzaprine 10 mg tablet 10 mg PO TID PRN muscle spasm #30 06/01/22 Unknown Rx tabs ibuprofen 800 mg tablet 800 mg PO Q8H 7 days #21 tabs 02/19/23 Unknown Rx clindamycin HCl 150 mg capsule 150 mg PO Q6H 7 days #28 caps 11/14/23 Unknown Rx doxycycline hyclate 100 mg capsule 100 mg PO BID #20 caps 11/25/23 Unknown Rx hydrocodone-acetaminophen 5-325mg 1 tab PO Q6H PRN PRN Pain 3 days 11/25/23 Unknown Rx 5mg-325mg #8 TABLETS Allergy/AdvReac Type Severity Reaction Status Date / Time Penicillins Allergy Rash Verified 11/25/23 12:53 Surgical History History of total vaginal hysterectomy (TVH) H/O bilateral salpingectomy History of total vaginal hysterectomy (TVH) (~03/01/21) H/O dilation and curettage S/P tubal ligation Social History Smoking Status: Never smoker alcohol intake: never substance use type: does not use caffeine: Yes seatbelt use: always do you feel safe at home: Yes additional social history: - [facility] <LSIA Godfrey - Last Filed: 11/25/23 14:04> ROS ED ROS Narrative Constitutional: Negative for fever, chills, weight loss, weakness Eyes: Negative for vision loss, vision change, double vision ENT: Negative for any sore throat, ear pain, congestion Cardiovascular: Negative for any chest pain, tightness, palpitations Respiratory: Negative for any cough, sputum production, hemoptysis, dyspnea, dyspnea on exertion, orthopnea Gastrointestinal: Negative for any abdominal pain, nausea, vomiting, diarrhea, constipation, blood in stool, blood in vomit : Negative for any urinary frequency, dysuria, retention, blood in urine Muscle skeletal: Negative for any neck pain, back pain. Positive right hand pain and swelling Neurological: Negative for any headache, syncope, dizziness Skin: Negative for any rashes, itching. Positive for puncture wounds, laceration with sutures Psychiatric: Negative for any depression, anxiety, stress, suicidal ideation, homicidal ideation Hematologic: Negative for any excessive bruising, easy bleeding EXAM <LISA Godfrey - Last Filed: 11/25/23 14:04> Physical Exam Narrative Exam Narrative: Vital signs reviewed. Extremities: Patient has obvious edema to the dorsum of the right hand, patient has a small puncture wound that is scabbed over, most of swelling, tenderness is along the distal first second and third metacarpals. Patient has full range of motion of the fingers, however the middle finger when flexed causes significant amount of pain. +2 radial pulse. Neuro: Cranial nerves II through XII intact, no focal neurological deficits. Skin: Clean dry and intact with no rash, purpura, petechiae, vesicles or pustules. Backs/flank: No CVA tenderness, no midline spinal tenderness, no deformity. Psych: Normal mood and affect. No SI, HI or acute psychosis. Const Vital Signs: 11/25/23 12:53 11/25/23 14:00 11/25/23 14:04 Temperature 96.7 F L 97.8 F 97.8 F Temperature Source Temporal Temporal Pulse Rate 64 78 76 Respiratory Rate 18 18 18 Blood Pressure 147/89 H 147/89 H 147/89 H Blood Pressure Mean 108 108 108 Pulse Ox 98 98 98 Oxygen Delivery Method Room Air Room Air <Dr. Polo John DO - Last Filed: 11/25/23 14:10> Physical Exam Const Vital Signs: 11/25/23 12:53 11/25/23 14:00 11/25/23 14:04 Temperature 96.7 F L 97.8 F 97.8 F Temperature Source Temporal Temporal Pulse Rate 64 78 76 Respiratory Rate 18 18 18 Blood Pressure 147/89 H 147/89 H 147/89 H Blood Pressure Mean 108 108 108 Pulse Ox 98 98 98 Oxygen Delivery Method Room Air Room Air [facility] <LISA Godfrey - Last Filed: 11/25/23 14:04> MDM Radiography Diagnostic Testing: Clinical Impression(s) from Imaging Studies Hand X-Ray 11/25/23 13:19 IMPRESSION: Diffuse soft tissue swelling. No acute osseous abnormalities. No foreign body. Electronically Signed: Julio Cesar Kohler DO at 13:43 EDT , Treatment and Re-Evaluation :: Differential diagnosis includes however is not limited to: Cellulitis, flexor tendon synovitis, fracture, foreign body Patient appears to be in no obvious distress vital signs are stable. Presenting to the emergency department for reevaluation to the right hand after a dog bite that occurred December 11, 2023. I will perform an x-ray of the right hand to ensure there is no foreign body, osseous abnormality. 6 sutures were removed from the dorsum of the right hand, wound appears well-healing, no signs of cellulitis. Patient is able to flex all fingers. All radiologic examinations were read, reviewed by the emergency department attending. From these reads, a plan of care will be put in place. X-rays of the hand were negative for any acute osseous abnormality, did show some soft tissue swelling, no foreign body. Patient will be placed on doxycycline twice a day for 10 days as well as a short course of pain medicine. Instructed to return for any worsening redness, fever chills nausea vomiting. Happy with the plan of care stable for discharge <Dr. Polo John, DO - Last Filed: 11/25/23 14:10> [facility] Narrative Medical decision making narrative: I have personally performed a face to face assessment of the patient and have reviewed the GWYN Note. I performed a substantive portion of the visit including all aspects of the following. My mohamud findings include: History: Patient presents with pain and swelling to her right hand that has been getting worse. Patient was seen here on 11/14/2023 for a dog bite. Patient had sutures placed in her hand at that time. Patient states the swelling has been persistent. Patient states she completed a course of clindamycin. Patient states the pain is worse with any movement. Patient denies any discharge or drainage. Patient denies any fevers or chills. Exam: Vital signs are stable. Patient is afebrile. Patient is in no acute distress. Skin is warm and dry. There is edema over the dorsum of the right hand. There is slight erythema. There is no warmth noted. Incision is healing well. There is no discharge or drainage. There is no surrounding erythema. Range of motion was limited in all motions of the right middle finger secondary to pain. Sensation was intact to light touch in all digits. Capillary refill was less than 2 seconds in all digits. Radial pulses are equal bilaterally. There is no pain with passive extension of the middle finger. There is minimal tenderness along the flexor tendon. Medical Decision Making: Differential diagnosis includes wound infection, retained foreign body, fracture, tenosynovitis, and cellulitis. X-rays of the right hand will be obtained to assess for fracture and retained foreign body. X-rays of the right hand were obtained. There are 3 views. On my independent interpretation, there is no acute fracture or foreign body noted. There is some soft tissue swelling noted. Radiologist also interpreted the x-ray and agrees. Patient was given a dose of doxycycline and [place] here. Patient was given prescriptions for doxycycline and [place]. Patient was instructed to keep her hand elevated. Patient instructed use ice to help with the swelling. Patient was instructed to follow-up with her primary care physician in 5 to 7 days. Patient was instructed to return if worse in any way. Patient understood and was agreeable with the plan. All questions were answered. Radiography Diagnostic Testing: Clinical Impression(s) from Imaging Studies Hand X-Ray 11/25/23 13:19 IMPRESSION: Diffuse soft tissue swelling. No acute osseous abnormalities. No foreign body. Electronically Signed: Julio Cesar Kohler DO at 13:43 EDT , Discharge Plan Triage Chief Complaint: Bite ED Midlevel Provider: Jabier Pisano ED Provider: Polo John Dx/Rx/DC Orders Clinical Impression: Hand pain, History of dog bite, Cellulitis Instructions: ED Cellulitis Prescriptions: New doxycycline hyclate 100 mg capsule 100 mg PO BID Qty: 20 0RF hydrocodone-acetaminophen 5-325 mg tablet 1 tab PO Q6H PRN PRN (Reason: Pain) 3 Days Qty: 8 0RF No Action ibuprofen 800 mg tablet 800 mg PO Q8H 7 Days Qty: 21 2RF cyanocobalamin (vitamin B-12) [Vitamin B-12] 1,000 mcg tablet 1,000 mcg PO DAILY Patient Comments: Take 1 tablet by mouth once daily. ascorbic acid (vitamin C) 250 mg tablet 250 mg PO DAILY Patient Comments: Take 1 tablet by mouth once daily. clindamycin HCl 150 mg capsule 150 mg PO Q6H 7 Days Qty: 28 0RF cyclobenzaprine 10 mg tablet 10 mg PO TID PRN (Reason: muscle spasm) Qty: 30 2RF Primary Care Provider: ANKUSH DODGE Referrals: ANKUSH DODGE NP-C [Primary Care Provider] - Activity Restrictions/Additional Instructions: Keep ice and elevate. Take the antibiotics till finished, pain medicine as needed. Print Language: Tajik Disposition Disposition: Home, Self Care Discharge Date/Time: 11/25/23 14:06
--- NOTE | 2023-11-25 13:19 | RAD_ITS ---
EXAM: XR RIGHT HAND COMPLETE, 3 OR MORE VIEWS CLINICAL INDICATION: hand swelling TECHNIQUE: Frontal, lateral and oblique views of the right hand. COMPARISON: Wrist and forearm radiographs dated 06/03/2015 FINDINGS: BONES/JOINTS: No significant abnormality. No acute fracture. No subluxation. Normal alignment. Preservation of the joint space. No sclerotic or destructive changes observed. SOFT TISSUES: Diffuse soft tissue swelling. No radiopaque foreign body. RAD/Hand Min 3 Views IMPRESSION: Diffuse soft tissue swelling. No acute osseous abnormalities. No foreign body. Electronically Signed: Julio Cesar Kohler DO at 13:43 EDT ,
[2023-11-25] MEDS: HYDROcodone Bitartrate/Apap 5/325 Tablet PO (13:37)
[2023-11-25] MEDS: Doxycycline 100 MG CAPSULE PO (13:37)
[2023-11-25 14:00] VITALS: BP 147/89; PULSE 78; RESP 18; TEMP 36.6; O2SAT 98
[2023-11-25 14:04] VITALS: BP 147/89; PULSE 76; RESP 18; TEMP 36.6; O2SAT 98
== END 2023-11-25 14:06 | disposition home or self-care (01) ==
PROVIDERS: Emergency Provider Emergency Medicine; PCP Nurse Practitioner; Visit Provider Emergency Medicine
DX: L03.113 Cellulitis of right upper limb (principal); S61.451D Open bite of right hand, subsequent encounter; W54.0XXD Bitten by dog, subsequent encounter
CPT/HCPCS: 73130; 99282

== ENCOUNTER 2025-01-20 12:20 | Emergency (ER) | payer MEDICAID, SELFPAY ==
[2025-01-20 12:20] VITALS: BP 156/94; PULSE 76; RESP 18; TEMP 37; O2SAT 98
--- NOTE | 2025-01-20 12:40 | RAD_ITS ---
PROCEDURE: KNEE 4 OR MORE VIEWS; TIBIA FIBULA 2 VIEWS 01/20/2025 REASON FOR EXAM: INJURY TECHNIQUE: Procedure Code: RADKN; RADTF Modality: DX Procedure: KNEE 4 OR MORE VIEWS; TIBIA FIBULA 2 VIEWS Laterality: Left COMPARISON: Available priors FINDINGS: No acute fracture through the knee. Normal appearance of the tibia and fibula. Well-circumscribed sclerotic focus in the left proximal tibia likely reflects a bone island. There is no acute fracture. No dislocation. Normal appearance of the knee and ankle. No soft tissue abnormality. RAD/Tibia & Fibula 2 Views IMPRESSION: Unremarkable appearance of the left knee and left tibia and fibula. Reading Location: [id number]
--- NOTE | 2025-01-20 12:40 | RAD_ITS ---
PROCEDURE: KNEE 4 OR MORE VIEWS; TIBIA FIBULA 2 VIEWS 01/20/2025 REASON FOR EXAM: INJURY TECHNIQUE: Procedure Code: RADKN; RADTF Modality: DX Procedure: KNEE 4 OR MORE VIEWS; TIBIA FIBULA 2 VIEWS Laterality: Left COMPARISON: Available priors FINDINGS: No acute fracture through the knee. Normal appearance of the tibia and fibula. Well-circumscribed sclerotic focus in the left proximal tibia likely reflects a bone island. There is no acute fracture. No dislocation. Normal appearance of the knee and ankle. No soft tissue abnormality. RAD/Knee 4 or More Views IMPRESSION: Unremarkable appearance of the left knee and left tibia and fibula. Reading Location: [id number]
[2025-01-20 14:12] VITALS: BMI 29.3
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
[2025-01-20 15:07] VITALS: BP 147/81; PULSE 78; RESP 16; TEMP 36.6; O2SAT 99
== END 2025-01-20 15:08 | disposition home or self-care (01) ==
PROVIDERS: Emergency Provider Emergency Medicine; PCP Nurse Practitioner; Visit Provider Emergency Medicine
DX: S89.92XA Unspecified injury of left lower leg, initial encounter (principal); W19.XXXA Unspecified fall, initial encounter
CPT/HCPCS: 73564; 73590; 99283